=== PATIENT | female | born 1955 | race Caucasian/White ===

== ENCOUNTER 2019-08-13 15:26 | Emergency (ER) | payer MEDICARE, OTHER, SELFPAY ==
[2019-05-01 09:42] VITALS: BMI 33.5
[2019-07-10 13:02] VITALS: BMI 32.3
[2019-08-13 15:29] VITALS: BP 132/90; PULSE 101; RESP 15; TEMP 36.6; O2SAT 97; BMI 29.5
[2019-08-13] MEDS: 0.9% Normal Saline 1,000 ML 1000 ML IV (16:12)
[2019-08-13 16:31] LABS: Anion Gap 8 (5-15); BUN 21 mg/dL (7-18); BUN/Creat Ratio 21.2 RATIO (10-20); Calcium,Total 9.3 mg/dL (8.5-10.1); Chloride 108 mmol/L (98-107); Creatinine, Serum 0.99 mg/dL (0.55-1.02); EST Glomerular Filtration Rate 60 mL/min (>60); Est Glom Filt Rate - Afr Amer 72 mL/min (>60); Estimated Creatinine Clearance 48.92 ml/min; Glucose 100 mg/dL (74-106); Sodium Level 140 mmol/L (136-145)
[2019-08-13 17:00] LABS: Absolute Lymphocyte Count 0.22 X10^3/uL (0.83-4.51); Absolute Neutrophil Count 3.1 X10^3/uL (2.0-7.7); Basophil# 0.03 X10^3/uL; Basophil% 0.8 % (0-1); Eosinophil# 0.04 X10^3/uL; Hematocrit 37.3 % (37-47); Hemoglobin 12.5 g/dL (12.0-15.0); Lymphocyte # 0.22 X10^3/ul (4.0); Lymphocyte % 5.8 % (19-41); Mean Corp Hgb Conc 33.5 g/dL (32-36); Mean Corpuscular Hgb 30.3 pg (27.0-32.0); Mean Corpuscular Volume 90.5 fL (81-99); Monocyte# 0.35 X10^3/uL; Monocyte% 9.2 % (0-10); NRBC Flagged by Analyzer 0 % (0-5); Neutrophil # 3.14 X10^3/uL (2.7-7.7); Neutrophil % 82.4 % (47-70); POSITIVE COUNT YES; POSITIVE DIFFERENTIAL YES; Platelet Count 91 K/mm3 (150-450); RBC Distribution Width CV 11.9 % (11.6-14.6); RBC Distribution Width SD 38.1 fl (35.1-43.9); Red Blood Count 4.12 M/mm3 (4.2-5.4); White Blood Count 3.8 K/mm3 (4.4-11.0)
[2019-08-13 17:02] LABS: Differential Indicated SCAN CRITERIA MET
--- NOTE | 2019-08-13 17:28 | DCINST.ED_ITS ---
ED Disposition - Plan for ED Patient: Instructions: ED Dehydration Adult Referrals: Sharmaine Alonso, SHEET METAL TECHNICIAN-C [Primary Care Provider] -
--- NOTE | 2019-08-13 17:28 | ED.DEP ---
ED Disposition - Plan for ED Patient: Instructions: ED Dehydration Adult Referrals: Sharmaine Alonso, RIDER TICKET WORKER-C [Primary Care Provider] -
--- NOTE | 2019-08-13 17:31 | ED.DCSUM_ITS ---
- ER Visit Summary Date of Service: 08/13/19 Chief Complaint: Concern for dehydration History of Present Illness: The patient is a 63 F presenting with concern for dehydration. Patient states that she has not been able to eat or drink for the past several days. She states she has tried yogurt. She has been able to eat small amounts and drink small amounts. She states every time she tries to eat she has pain in her esophagus. She has a history of esophageal cancer currently on chemotherapy and radiation. She denies dizziness or syncope. Denies fever or other complaints. She has had vomiting but is not currently nauseated. Denies other complaints. Physical Examination: Vitals are stable. Heart rate 101. Patient is afebrile. Alert no acute distress. HEENT exam is unremarkable. Neck is supple. Lungs are clear and equal bilaterally. Heart is regular and tachycardic Abdomen is soft nontender nondistended. Extremities are unremarkable. Skin is warm and dry. No focal neurologic deficit. Remainder of exam is unremarkable. Emergency Department Course and Treatment: Patient was given IV fluids. CBC shows white count 3.8, platelet 91. BUN 21. On reevaluation patient is able to eat ice chips. Repeat heart rate 72. She would like to go home. Discussed with her oncologist Dr. Cabezas and patient will be seen on Tuesday. She is advised return to the ED for worsening complaints. Disposition: Discharge home Impression: Mild dehydration This note was generated with [employer] dictation software. It may contain incorrect words, spelling, and punctuation that were not noted in review of the chart prior to signing ED Disposition - Plan for ED Patient: Instructions: ED Dehydration Adult Referrals: Sharmaine Alonso NP-C [Primary Care Provider] -
[2019-08-13 17:33] VITALS: PULSE 72; RESP 16; O2SAT 100
[2019-08-13 17:56] VITALS: BP 131/82; PULSE 68
[2019-08-13 18:01] LABS: Differential Comment SCANNED; Platelet Estimate MOD DEC (ADEQ); Red Cell Morphology NORM C+C NORMAL (NORM C&C)
== END 2019-08-13 17:57 | disposition home or self-care (01) ==
LOC: ED 16:13
PROVIDERS: Emergency Provider Emergency Medicine; PCP Nurse Practitioner Family
DX: E86.0 Dehydration (principal); I10 Essential (primary) hypertension; C15.9 Malignant neoplasm of esophagus, unspecified; Z79.82 Long term (current) use of aspirin
CPT/HCPCS: 80048; 85025; 96360; 99283; J7030; A4216

== ENCOUNTER 2019-08-20 12:20 | Inpatient (IN) | payer MEDICARE, OTHER, SELFPAY ==
[2019-07-10 13:02] VITALS: BMI 32.3
[2019-08-20 11:00] VITALS: BMI 29.1
[2019-08-20 12:21] VITALS: BP 122/37; PULSE 96; RESP 18; TEMP 36.6; O2SAT 99; BMI 28.5
--- NOTE | 2019-08-20 12:41 | ED.DCSUM_ITS ---
History of Present Illness Chief Complaint: Nausea/Vomiting/Diarrhea Narrative: Patient is a 63-year-old female with a history of esophageal cancer who presents with decreased oral intake and uncontrolled pain. I was contacted by the patient's radiation oncologist, Dr. Morris to discuss the patient before her arrival here. Patient has a history of distal esophageal cancer. She has been undergoing treatment for the past few weeks. She has pain out of proportion to what he would normally expect. Over the weekend she also developed nausea vomiting and diarrhea. She had decreased oral intake. She has had weight loss and poor nutrition. Radiation oncology spoke to general surgery, Dr. Brito and patient is scheduled for an upper GI at 130. She was given IV fluids in the office today. However patient's pain is uncontrolled and she is unable to keep down her pain medications, she is prescribed oral morphine. Patient denies any fevers or cough. Her pain is similar in character to what she has been having but more severe. Past Medical History - Allergies and Home Meds Allergies/Adverse Reactions: Allergies codeine Allergy (Verified 08/20/19 12:24) Shortness of breath levofloxacin [From Levaquin] Allergy (Verified 08/20/19 12:24) Rash Primary Care Physician: Sharmaine Alonso NP-C [Primary Care Provider] - Past Medical History: - - Hypertension, hyperlipidemia, esophageal cancer Smoking Status: Never smoker Review of Systems All systems negative except as indicated General: Denies: Fever Eyes: Denies: Visual changes - bilaterally ENT: Denies: Bilateral ear pain Cardiovascular: Reports: Chest pain Respiratory: Denies: Dyspnea Gastrointestinal: Reports: Abdominal pain. Denies: Nausea, Vomiting, Diarrhea Skin: Denies: Rash Neurological: Denies: Headache Hematologic: Denies: Easy bruising Allergy: Denies: Uticaria Physical Exam Vital Signs/Narrative: Vital Signs Temp Pulse Resp BP Pulse Ox 08/20/19 12:21 97.8 F 96 18 122/37 H 99 Inital Vital Signs reviewed: Yes General: Well nourished Head: Normocephalic Eyes: EOMI ENT: Moist mucous membranes Neck: Supple Cardiovascular: Regular rate, Regular rhythm Respiratory: No distress, CTA bilaterally Abdomen: Soft, Nontender, Nondistended Extremities: Nontender Skin: Normal color Neurological: Alert Psychological: Normal affect Diagnostic/Tx/Re-eval Laboratory Results 08/20/19 08/20/19 13:10 13:10 WBC 2.9 L RBC 3.64 L Hgb 11.1 L Hct 34.1 L MCV 93.7 MCH 30.5 MCHC 32.6 RDW Std Deviation 41.4 RDW Coeff of [place] 12.3 Plt Count 62 L MPV 10.4 Immature Gran % (Auto) 0.700 Neut % (Auto) 81.5 H Lymph % (Auto) 3.8 L [place] % (Auto) 13.0 H Eos % (Auto) 0.3 Baso % (Auto) 0.7 Absolute Neuts (auto) 2.4 Absolute Lymphs (auto) 0.11 L Nucleated RBC % 0 Sodium 143 Potassium 4.3 Chloride 110 H Carbon Dioxide 21.0 Anion Gap 12 BUN 25 H Creatinine 0.94 Estim Creat Clear Calc 51.52 Est GFR (MDRD) Af Amer 77 Est GFR (MDRD) Non-Af 63 BUN/Creatinine Ratio 26.6 H Glucose 105 Calcium 8.9 Total Bilirubin 0.60 AST 13 L ALT 15 Alkaline Phosphatase 45 Total Protein 6.4 Albumin 3.2 Globulin 3.2 Albumin/Globulin Ratio 1.0 Lipase 91 - Medical Decision Making Laboratory evaluation as above essentially unremarkable. EKG shows normal sinus rhythm at a rate of 85. Patient will be discussed with the hospitalist and admitted. ED Disposition - Plan for ED Patient: Disposition: Acute Care Hospital [facility] Diagnosis: Esophageal cancer, Vomiting, Decreased oral intake Referrals: Sharmaine Alonso NP-C [Primary Care Provider] -
--- NOTE | 2019-08-20 12:41 | EKG12_ITS ---
Test Reason : NAUSEA/VOMITING Blood Pressure : / mmHG Vent. Rate : 085 BPM Atrial Rate : 085 BPM P-R Int : 146 ms QRS Dur : 082 ms QT Int : 374 ms P-R-T Axes : 000 -09 -08 degrees QTc Int : 445 ms Normal sinus rhythm Normal ECG Confirmed by KRZYSZTOF DE ANDA, WILLIS ([id number]), video effects editor GEOVANNA JOYCE ([id number]) on 08/23/2019 10:32:40 AM Referred By: MIKE Confirmed By:WILLIS BLANKENSHIP MD
--- NOTE | 2019-08-20 13:04 | NURSING ---
NO OLD EKGS
[2019-08-20] MEDS: HYDROmorphone 1 MG/ML Syringe IV ×2 (13:07→14:38)
[2019-08-20] MEDS: Ondansetron 4 MG/2 ML Vial IV ×2 (13:07→22:48)
[2019-08-20 13:24] LABS: Absolute Lymphocyte Count 0.11 X10^3/uL (0.83-4.51); Absolute Neutrophil Count 2.4 X10^3/uL (2.0-7.7); Basophil# 0.02 X10^3/uL; Basophil% 0.7 % (0-1); Eosinophil# 0.01 X10^3/uL; Eosinophils% 0.3 % (0-5); Hematocrit 34.1 % (37-47); Hemoglobin 11.1 g/dL (12.0-15.0); Lymphocyte # 0.11 X10^3/ul (4.0); Lymphocyte % 3.8 % (19-41); Mean Corp Hgb Conc 32.6 g/dL (32-36); Mean Corpuscular Hgb 30.5 pg (27.0-32.0); Mean Corpuscular Volume 93.7 fL (81-99); Mean Platelet Vol. 10.4 fl (6.2-12.0); Monocyte# 0.38 X10^3/uL; NRBC Flagged by Analyzer 0 % (0-5); Neutrophil # 2.39 X10^3/uL (2.7-7.7); Neutrophil % 81.5 % (47-70); POSITIVE COUNT YES; POSITIVE DIFFERENTIAL YES; POSITIVE MORPHOLOGY YES; Platelet Count 62 K/mm3 (150-450); RBC Distribution Width CV 12.3 % (11.6-14.6); RBC Distribution Width SD 41.4 fl (35.1-43.9); Red Blood Count 3.64 M/mm3 (4.2-5.4); White Blood Count 2.9 K/mm3 (4.4-11.0)
[2019-08-20 13:26] LABS: Differential Indicated SCAN CRITERIA MET
[2019-08-20 13:36] LABS: AST(SGOT) 13 U/L (15-37); Alanine Aminotransfer ALT/SGPT 15 U/L (13-56); Albumin, Serum 3.2 g/dL (3.2-5.0); Alkaline Phosphatase 45 U/L (45-117); Anion Gap 12 (5-15); BUN 25 mg/dL (7-18); BUN/Creat Ratio 26.6 RATIO (10-20); Calcium,Total 8.9 mg/dL (8.5-10.1); Chloride 110 mmol/L (98-107); Creatinine, Serum 0.94 mg/dL (0.55-1.02); EST Glomerular Filtration Rate 63 mL/min (>60); Est Glom Filt Rate - Afr Amer 77 mL/min (>60); Estimated Creatinine Clearance 51.52 ml/min; Globulin 3.2 g/dL (2.2-4.2); Glucose 105 mg/dL (74-106); Lipase 91 U/L (73-393); Potassium 4.3 mmol/L (3.5-5.1); Protein, Total 6.4 g/dL (6.4-8.2); Sodium Level 143 mmol/L (136-145)
[2019-08-20 14:20] VITALS: BP 122/76; PULSE 78; RESP 16; O2SAT 98
[2019-08-20 14:41] VITALS: BP 122/76; PULSE 78; RESP 16; TEMP 36.6; O2SAT 98
[2019-08-20 14:51] LABS: Platelet Estimate MOD DEC (ADEQ)
--- NOTE | 2019-08-20 15:28 | NURSING ---
315 KOTSOINIS ESOPHAGEAL CA, DEHYDRATION
[2019-08-20 16:02] VITALS: BMI 28.8
[2019-08-20 16:25] VITALS: BP 120/85; PULSE 82; RESP 18; TEMP 36.5; O2SAT 98
[2019-08-20] MEDS: Dextrose 5%/0.9% NaCl 1,000 ML 100 ML IV (16:38)
[2019-08-20] MEDS: Morphine 4 MG/ML Syringe IV ×3 (16:41→23:17)
--- NOTE | 2019-08-20 18:02 | HP.PCM_ITS ---
History of Present Illness Date of Admission: 08/20/19 Chief Complaint: N/V unable to take PO The patient is a 63 year old F with a PMH as below who presents from home with increasing abdominal pain whenever she tries to eat, as well as nausea and vomiting. She has a distal esophageal cancer and she is received 20 doses of radiation and has another 8 to go. However for the last several days she has noticed that she has had difficulty taking in food or liquids. The eating attempts were met with increasing pain as well as emesis. She says it she has a baseline amount of pain secondary to the radiation of the cancer and that it does get worse intermittently just with eating. She is afebrile, and denies any fevers, shortness of breath, chest pain, lightheadedness, dizziness. Past Medical History Medical History: Medical History (Last Updated 07/10/19 @ 13:05 by Coleen Adair, RN) Diabetes E11.9 Esophageal cancer C15.9 Gastric reflux K21.9 Gastric ulcer K25.9 HTN (hypertension) I10 Allergies codeine Allergy (Verified 08/20/19 12:24) Shortness of breath levofloxacin [From Levaquin] Allergy (Verified 08/20/19 12:24) Rash Home Medications: Ambulatory Orders Medication Instructions Recorded Aspirin [Aspirin, Baby] 81 mg PO DAILY@0800 04/22/14 Multivit with Calcium,Iron,Min 1 ea PO DAILY 04/22/14 [Multiple Vitamins For Women] pantoprazole 40 mg tablet,delayed 40 tablet PO DAILY 05/01/19 release simvastatin 40 mg tablet 40 mg PO DAILY 05/01/19 Clonazepam [Clonazepam Tab.Rapdis] 0.25 mg PO BID PRN 07/10/19 HydrOXYzine [Atarax] 25 mg PO DAILY 07/10/19 Magic Mouth Wash 10 ml PO Q6H PRN PRN #300 ml 08/06/19 Morphine Sulfate 10 mg PO TID PRN 08/15/19 Sertraline HCl [Zoloft] 100 mg PO DAILY 08/20/19 Surgical History: Surgical History (Last Updated 07/10/19 @ 13:06 by Coleen Adair, ANTONIO) H/O lumpectomy Z98.890 History of esophagogastroduodenoscopy (EGD) Z98.890 Smoking Status: Never smoker Alcohol: None Drugs: None - *Family History Maternal History Items: Cancer, Heart Disease Paternal History Items: Heart Disease Review of Systems Constitutional: Reports: Anorexia. Denies: Chills, Fever, Weight Change HEENT: Reports: Difficulty Swallowing. Denies: Head Aches, Sinus Congestion, Sinus Drainage Cardiovascular: Denies: Chest Pain, Palpitations Respiratory: Denies: Cough, Shortness of breath at rest, Sputum production Gastrointestinal: Reports: Abdominal Pain, Nausea, Vomiting Genitourinary: Denies: Dysuria Musculoskeletal: Denies: Joint Pain, Joint Tenderness Skin: Denies: Rash, Wounds Neurological: Denies: Numbness, Tingling, Focal weakness Psychiatric: Denies: Anxiety, Depression Hematologic/ Lymphatic: Denies: Easy Bruising, Easy Bleeding VTE Information - Inpt Only VTE Present on Admission: No Patient Problems: Active and Suspected Problems (Last Updated 07/10/19 @ 13:05 by Coleen Adair RN) Esophageal cancer (Acute) Vomiting (Acute) Decreased oral intake (Acute) - Physical Exam Vitals/I&O's: Vital Signs Temp Pulse Resp BP Pulse Ox 97.7 F L 82 18 120/85 H 98 08/20/19 16:25 08/20/19 16:25 08/20/19 16:25 08/20/19 16:25 08/20/19 16:25 Oxygen Delivery Method Room Air Weight: 167 lb 15.876 oz Body Mass Index (BMI) 28.8 Finger Stick Blood Glucose 114 Intake and Output for Last 24 Hours 08/18/19 08/19/19 08/20/19 23:59 23:59 23:59 Intake Total 81.67 / 81.67 Balance 81.67 / 81.67 General: Alert, Oriented x3, Cooperative, No apparent distress HEENT: Atraumatic, PERRLA, EOMI, Normocephalic Oral: Dry Mucosa Neck: Supple, No JVD Lungs: Clear to auscultation, Normal air movement, No rhonchi, No wheeze, No rales, Diminished Cardiovascular: Regular rate, Regular Rhythm, Normal S1, Normal S2, No murmurs Abdomen: Soft, Non Tender, Non-Distended, No Hepato-splenomegaly Extremities: No edema, Capillary Refill Less than 3 Seconds Skin: No rashes, No breakdown Neurological: Neuro grossly intact, Sensory exam intact to light touch and pain Psych/Mental Status: Normal Affect, Appropriate Laboratory Results 08/20/19 13:10: WBC 2.9 L, RBC 3.64 L, Hgb 11.1 L, Hct 34.1 L, MCV 93.7, MCH 30.5, MCHC 32.6, RDW Std Deviation 41.4, RDW Coeff of [place] 12.3, Plt Count 62 L, MPV 10.4, Immature Gran % (Auto) 0.700, Neut % (Auto) 81.5 H, Lymph % (Auto) 3.8 L, [place] % (Auto) 13.0 H, Eos % (Auto) 0.3, Baso % (Auto) 0.7, Absolute Neuts (auto) 2.4, Absolute Lymphs (auto) 0.11 L, Nucleated RBC % 0, Differential Comment COMMENT, Diff Path Review July, Platelet Estimate MOD 08/20/19 13:10: Sodium 143, Potassium 4.3, Chloride 110 H, Carbon Dioxide 21.0, Anion Gap 12, BUN 25 H, Creatinine 0.94, Estim Creat Clear Calc 51.52, Est GFR (MDRD) Af Amer 77, Est GFR (MDRD) Non-Af 63, BUN/Creatinine Ratio 26.6 H, Glucose 105, Calcium 8.9, Total Bilirubin 0.60, AST 13 L, ALT 15, Alkaline Phosphatase 45, Total Protein 6.4, Albumin 3.2, Globulin 3.2, Albumin/Globulin Ratio 1.0, Lipase 91 Current Medications Aspirin (Aspirin, Baby) 81 mg PO DAILY@0800 [facility] Atorvastatin Calcium (Lipitor) 20 mg PO QHS [facility] Clonazepam (Klonopin) 0.25 mg PO BID PRN PRN Reason: ANXIETY Enoxaparin Sodium (Lovenox) 40 mg SC DAILY [facility] Hydroxyzine Pamoate (Vistaril Pamoate Capsule) 25 mg PO DAILY [facility] Dextrose/Sodium Chloride (Dextrose 5%/0.9% Nacl) 1,000 mls @ 100 mls/hr IV .Q10H [facility] Last Infusion: 08/20/19 17:27 Dose: 0 mls/hr Documented by: Pantoprazole Sodium 40 mg/ (Sodium Chloride) 110 mls @ 330 mls/hr IV Q24 [facility] Last Admin: 08/20/19 17:26 Dose: 330 mls/hr Documented by: Lidocaine/Diphenhydr/Alum/Mg/Simeth () 10 ml PO Q6H PRN PRN Reason: Pain Score 1-10/10 Melatonin (Melatonin) 3 mg PO QHS PRN PRN PRN Reason: INSOMNIA Morphine Sulfate () 4 mg IV Q3H PRN PRN PRN Reason: Pain Score 6-10/10 Last Admin: 08/20/19 16:41 Dose: 4 mg Documented by: Morphine Sulfate (Roxanol (Ir Oral Solution)) 10 mg PO TID PRN PRN Reason: Pain Score 1-10/10 Ondansetron HCl (Zofran) 4 mg IV Q8H PRN PRN PRN Reason: NAUSEA/VOMITING Sertraline HCl (Zoloft) 100 mg PO DAILY [facility] Assessment/Plan All Active Problems (Last Updated 07/10/19 @ 13:05 by Coleen Adair RN) Esophageal cancer (Acute) Vomiting (Acute) Decreased oral intake (Acute) 1. Distal esophageal cancer with poor histology with dysphagia secondary to either cancer or radiation trauma/GERD -We will obtain an upper GI with a barium swallow to evaluate the distal esophagus -If there is some room could potentially proceed with Dobbhoff placement for feeds -Consult to general surgery for assistance -Continue with IV fluids at 100 with D5 normal saline -She takes morphine 10 mg p.o. 3 times daily as needed, she is not interested in trying anything p.o. at this time therefore have transitioned her to 4 mg of morphine IV every 3 hours as needed -Also continue with PPI -Given her cancer diagnosis, will place her on Lovenox for DVT prophylaxis 2. HTN/HLD -Blood pressure stable -Continue with simvastatin if able as well as aspirin if able 3. Depression/anxiety -Stable -Continue Zoloft if able DVT: Lovenox OBSV E&M: [id number] Initial observation care L2
[2019-08-20] MEDS: 0.9% Saline Lock 10 ML Syringe IV ×3 (22:48→23:18)
[2019-08-20 23:00] VITALS: BP 119/71; PULSE 91; RESP 16; TEMP 36.6; O2SAT 97
[2019-08-21] MEDS: LORazepam 2 MG/ML Syringe 0.5 MG IV ×2 (00:54→14:35)
[2019-08-21] MEDS: 0.9% Saline Lock 10 ML Syringe IV ×5 (00:54→17:53)
[2019-08-21] MEDS: Dextrose 5%/0.9% NaCl 1,000 ML 100 ML IV ×2 (03:16→17:40)
[2019-08-21] MEDS: Morphine 4 MG/ML Syringe IV ×2 (04:43→18:18)
[2019-08-21] MEDS: Ondansetron 4 MG/2 ML Vial 8 MG IV ×2 (04:46→17:53)
[2019-08-21 05:03] VITALS: BP 116/74; PULSE 90; RESP 18; TEMP 36.8; O2SAT 95
[2019-08-21 05:43] LABS: Absolute Lymphocyte Count 0.08 X10^3/uL (0.83-4.51); Basophil# 0.01 X10^3/uL; Basophil% 0.7 % (0-1); Eosinophil# 0.01 X10^3/uL; Eosinophils% 0.7 % (0-5); Hematocrit 31.5 % (37-47); Hemoglobin 10.1 g/dL (12.0-15.0); Lymphocyte # 0.08 X10^3/ul (4.0); Lymphocyte % 5.7 % (19-41); Mean Corp Hgb Conc 32.1 g/dL (32-36); Mean Corpuscular Hgb 30.3 pg (27.0-32.0); Mean Corpuscular Volume 94.6 fL (81-99); Mean Platelet Vol. 9.4 fl (6.2-12.0); Monocyte# 0.32 X10^3/uL; Monocyte% 22.7 % (0-10); NRBC Flagged by Analyzer 0 % (0-5); Neutrophil # 0.99 X10^3/uL (2.7-7.7); Neutrophil % 70.2 % (47-70); POSITIVE COUNT YES; POSITIVE DIFFERENTIAL YES; POSITIVE MORPHOLOGY YES; Platelet Count 54 K/mm3 (150-450); RBC Distribution Width CV 12.3 % (11.6-14.6); RBC Distribution Width SD 41.8 fl (35.1-43.9); Red Blood Count 3.33 M/mm3 (4.2-5.4)
--- NOTE | 2019-08-21 05:55 | RAD_ITS ---
STUDY: AIR CONTRAST UPPER GI SERIES REASON FOR EXAM: Female, 63 years old. Distal esophageal CA, diagnosed June 26 -- unable to tolerate PO -- has had almost 5 weeks of chemo -- weight loss of 20 lbs, loss of appetite and too painful to eat or drink FLUOROSCOPY TIME (if supplied): (1:04) minutes/seconds TECHNIQUE: SINGLE CONTRAST AND AIR CONTRAST FLUOROSCOPIC IMAGES. COMPARISON: None. FINDINGS: The cervical esophagus demonstrates normal motility without aspiration. There is no stricture or extrinsic mass effect. No intraluminal polypoid mass is identified. There is evidence of a circumferential narrowing of the distal esophagus at the level of the gastroesophageal junction. There is irregular appearance suggestive of possible ulceration at that site. A small amount of contrast is seen entering the stomach. No hiatal hernia or gastroesophageal reflux was identified. RAD/Upper GI w/BA Swallow IMPRESSION: Irregular circumferential narrowing of the distal esophagus at the gastroesophageal junction. This is intimate with the patient''s known diagnosis of esophageal carcinoma. Small amount of barium is seen entering the stomach. Electronically Signed: Stuart Contreras, at 12:07 EDT , Service support ,
[2019-08-21 05:56] LABS: Differential Indicated SCAN CRITERIA MET; White Blood Count 1.4 K/mm3 (4.4-11.0)
[2019-08-21 06:04] LABS: Anion Gap 7 (5-15); BUN 22 mg/dL (7-18); BUN/Creat Ratio 26.8 RATIO (10-20); Calcium,Total 8.4 mg/dL (8.5-10.1); Chloride 115 mmol/L (98-107); Creatinine, Serum 0.82 mg/dL (0.55-1.02); EST Glomerular Filtration Rate 74 mL/min (>60); Est Glom Filt Rate - Afr Amer 90 mL/min (>60); Estimated Creatinine Clearance 59.06 ml/min; Glucose 143 mg/dL (74-106); Potassium 3.5 mmol/L (3.5-5.1); Sodium Level 145 mmol/L (136-145)
[2019-08-21 06:40] LABS: Differential Comment SCANNED
[2019-08-21 06:41] LABS: Platelet Estimate MOD DEC (ADEQ)
--- NOTE | 2019-08-21 07:22 | PCM.PN.HOSP ---
Patient Problems: Active and Suspected Problems (Last Updated 07/10/19 @ 13:05 by Coleen Adair RN) Esophageal cancer (Acute) Vomiting (Acute) Decreased oral intake (Acute) Vitals/I&O's: Vital Signs Temp Pulse Resp BP Pulse Ox 98.2 F 90 18 116/74 95 08/21/19 05:03 08/21/19 05:03 08/21/19 05:03 08/21/19 05:03 08/21/19 05:03 Oxygen Delivery Method Room Air Weight: 167 lb 15.876 oz Body Mass Index (BMI) 28.8 Finger Stick Blood Glucose 114 Intake and Output for Last 24 Hours 08/19/19 08/20/19 08/21/19 23:59 23:59 23:59 Intake Total 241.67 / 341.67 1018.33 / 1018.33 Output Total 400 / 400 Balance 241.67 / 141.67 618.33 / 618.33 Laboratory Results 08/20/19 13:10: WBC 2.9 L, RBC 3.64 L, Hgb 11.1 L, Hct 34.1 L, MCV 93.7, MCH 30.5, MCHC 32.6, RDW Std Deviation 41.4, RDW Coeff of [place] 12.3, Plt Count 62 L, MPV 10.4, Immature Gran % (Auto) 0.700, Neut % (Auto) 81.5 H, Lymph % (Auto) 3.8 L, [place] % (Auto) 13.0 H, Eos % (Auto) 0.3, Baso % (Auto) 0.7, Absolute Neuts (auto) 2.4, Absolute Lymphs (auto) 0.11 L, Nucleated RBC % 0, Differential Comment COMMENT, Diff Path Review July foll, Platelet Estimate MOD 08/20/19 13:10: Sodium 143, Potassium 4.3, Chloride 110 H, Carbon Dioxide 21.0, Anion Gap 12, BUN 25 H, Creatinine 0.94, Estim Creat Clear Calc 51.52, Est GFR (MDRD) Af Amer 77, Est GFR (MDRD) Non-Af 63, BUN/Creatinine Ratio 26.6 H, Glucose 105, Calcium 8.9, Total Bilirubin 0.60, AST 13 L, ALT 15, Alkaline Phosphatase 45, Total Protein 6.4, Albumin 3.2, Globulin 3.2, Albumin/Globulin Ratio 1.0, Lipase 91 08/21/19 05:25: Sodium 145, Potassium 3.5, Chloride 115 H, Carbon Dioxide 23.0, Anion Gap 7, BUN 22 H, Creatinine 0.82, Estim Creat Clear Calc 59.06, Est GFR (MDRD) Af Amer 90, Est GFR (MDRD) Non-Af 74, BUN/Creatinine Ratio 26.8 H, Glucose 143 H, Calcium 8.4 L 08/21/19 05:25: WBC 1.4 L*, RBC 3.33 L, Hgb 10.1 L, Hct 31.5 L, MCV 94.6, MCH 30.3, MCHC 32.1, RDW Std Deviation 41.8, RDW Coeff of [place] 12.3, Plt Count 54 L, MPV 9.4, Immature Gran % (Auto) 0.000, Neut % (Auto) 70.2 H, Lymph % (Auto) 5.7 L, [place] % (Auto) 22.7 H, Eos % (Auto) 0.7, Baso % (Auto) 0.7, Absolute Neuts (auto) 1.0 L, Absolute Lymphs (auto) 0.08 L, Nucleated RBC % 0, Differential Comment SCANNED, Diff Path Review May foll, Platelet Estimate MOD DEC Current Medications Aspirin (Aspirin, Baby) 81 mg PO DAILY@0800 [facility] Atorvastatin Calcium (Lipitor) 20 mg PO QHS [facility] Last Admin: 08/20/19 22:48 Dose: Not Given Documented by: Enoxaparin Sodium (Lovenox) 40 mg SC DAILY [facility] Hydroxyzine Pamoate (Vistaril Pamoate Capsule) 25 mg PO DAILY [facility] Dextrose/Sodium Chloride (Dextrose 5%/0.9% Nacl) 1,000 mls @ 75 mls/hr IV .[id number] [facility] Last Admin: 08/21/19 03:16 Dose: 100 mls/hr Documented by: Pantoprazole Sodium 40 mg/ (Sodium Chloride) 110 mls @ 330 mls/hr IV Q24 [facility] Last Infusion: 08/20/19 17:46 Dose: Infused Documented by: Sodium Chloride () 250 mls @ 15 mls/hr IV .[id number] PRN PRN Reason: Saline Flush Sodium Chloride () 250 mls @ 15 mls/hr IV .[id number] PRN PRN Reason: Additional IVPB Infusion Lidocaine/Diphenhydr/Alum/Mg/Simeth () 10 ml PO Q6H PRN PRN Reason: Pain Score 1-10/10 Lorazepam (Ativan) 0.5 mg IV Q6H PRN PRN PRN Reason: ANXIETY Last Admin: 08/21/19 00:54 Dose: 0.5 mg Documented by: Melatonin (Melatonin) 3 mg PO QHS PRN PRN PRN Reason: INSOMNIA Morphine Sulfate () 4 mg IV Q3H PRN PRN PRN Reason: Pain Score 6-10/10 Last Admin: 08/21/19 04:43 Dose: 4 mg Documented by: Morphine Sulfate (Roxanol (Ir Oral Solution)) 10 mg PO TID PRN PRN Reason: Pain Score 1-10/10 Ondansetron HCl (Zofran) 8 mg IV Q6H PRN PRN PRN Reason: NAUSEA/VOMITING Last Admin: 08/21/19 04:46 Dose: 8 mg Documented by: Sertraline HCl (Zoloft) 100 mg PO DAILY [facility] Sodium Chloride () 10 - 40 ml IV UD PRN PRN Reason: SALINE FLUSH Last Admin: 08/21/19 04:43 Dose: 10 ml Documented by: STROKE Vital Signs/Narrative: Vital Signs Temp Pulse Resp BP Pulse Ox 08/21/19 05:03 98.2 F 90 18 116/74 95 Medical Necessity - Tobacco Use Smoking Status: Never smoker Assessment/Plan All Active Problems (Last Updated 07/10/19 @ 13:05 by Coleen Adair RN) Esophageal cancer (Acute) Vomiting (Acute) Decreased oral intake (Acute) 1. Distal esophageal cancer with poor histology with dysphagia secondary to either cancer or radiation trauma/GERD - upper GI with a barium swallow/esophagram to evaluate the distal esophagus -Consult to general surgery for assistance -Continue with IV fluids at 100 with D5 normal saline -She takes morphine 10 mg p.o. 3 times daily as needed, she is not interested in trying anything p.o. at this time therefore have transitioned her to 4 mg of morphine IV every 3 hours as needed -Also continue with PPI -Given her cancer diagnosis, will place her on Lovenox for DVT prophylaxis 2. HTN/HLD -Blood pressure stable -Continue with simvastatin if able as well as aspirin if able 3. Depression/anxiety -Stable -Continue Zoloft if able DVT: Lovenox
--- NOTE | 2019-08-21 07:26 | CON.PCM_ITS ---
Problem List (1) Esophageal cancer Status: Acute Qualifiers: Malignant neoplasm of esophagus location: lower third Qualified Code(s): C15.5 - Malignant neoplasm of lower third of esophagus Reason for Consult Date of Consultation: 08/21/19 Reason for Consultation: Dysphasia and abdominal pain History of Present Illness: The patient is a 63 year old F with a history of esophageal cancer undergoing chemotherapy and radiation. The patient is seeing a surgeon at in [place] who will do her esophagectomy after chemo and radiation. The patient notes that she has been having epigastric pain since she was diagnosed but it has increased in intensity. She reports that lately she has been unable to eat. She reports that she immediately regurgitates food and she is having difficulty controlling her saliva secretions as well. Past Medical History Medical History: Medical History (Last Updated 07/10/19 @ 13:05 by Coleen Adair RN) Diabetes E11.9 Esophageal cancer C15.9 Gastric reflux K21.9 Gastric ulcer K25.9 HTN (hypertension) I10 Allergies codeine Allergy (Verified 08/20/19 12:24) Shortness of breath levofloxacin [From Levaquin] Allergy (Verified 08/20/19 12:24) Rash Home Medications: Ambulatory Orders Medication Instructions Recorded Aspirin [Aspirin, Baby] 81 mg PO DAILY@0800 04/22/14 Multivit with Calcium,Iron,Min 1 ea PO DAILY 04/22/14 [Multiple Vitamins For Women] pantoprazole 40 mg tablet,delayed 40 tablet PO DAILY 05/01/19 release simvastatin 40 mg tablet 40 mg PO DAILY 05/01/19 Clonazepam [Clonazepam Tab.Rapdis] 0.25 mg PO BID PRN 07/10/19 HydrOXYzine [Atarax] 25 mg PO DAILY 07/10/19 Magic Mouth Wash 10 ml PO Q6H PRN PRN #300 ml 08/06/19 Morphine Sulfate 10 mg PO TID PRN 08/15/19 Sertraline HCl [Zoloft] 100 mg PO DAILY 08/20/19 Surgical History: Surgical History (Last Updated 07/10/19 @ 13:06 by Coleen Adair RN) H/O lumpectomy Z98.890 History of esophagogastroduodenoscopy (EGD) Z98.890 Smoking Status: Never smoker Alcohol: None Drugs: None - *Family History Maternal History Items: Cancer, Heart Disease Paternal History Items: Heart Disease Review of Systems Constitutional: Reports: Anorexia. Denies: Fever HEENT: Reports: Dysphasia. Denies: Difficulty Hearing Cardiovascular: Denies: Chest Pain Respiratory: Denies: Cough, Shortness of Breath Gastrointestinal: Reports: Abdominal Pain, Nausea, Vomiting. Denies: Constipation, Diarrhea, Hematemesis, Hematochezia Skin: Denies: Jaundice Neurological: Denies: Balance problems Hematologic/ Lymphatic: Denies: Anemia Patient Problems: Active and Suspected Problems (Last Updated 07/10/19 @ 13:05 by Coleen Adair RN) Esophageal cancer (Acute) Vomiting (Acute) Decreased oral intake (Acute) - Physical Exam Vitals/I&O's: Vital Signs Temp Pulse Resp BP Pulse Ox 98.2 F 90 18 116/74 95 08/21/19 05:03 08/21/19 05:03 08/21/19 05:03 08/21/19 05:03 08/21/19 05:03 Oxygen Delivery Method Room Air Weight: 167 lb 15.876 oz Body Mass Index (BMI) 28.8 Finger Stick Blood Glucose 114 Intake and Output for Last 24 Hours 08/19/19 08/20/19 08/21/19 23:59 23:59 23:59 Intake Total 241.67 / 341.67 1018.33 / 1018.33 Output Total 400 / 400 Balance 241.67 / 141.67 618.33 / 618.33 General: Alert, Oriented x3, No apparent distress HEENT: Atraumatic Lungs: Normal air movement Cardiovascular: Regular rate, Regular Rhythm Abdomen: Soft, Non-Distended, Tender - Tender in the epigastric region Musculoskeletal: No Muscle Wasting Neurological: Cranial nerves II-XII grossly intact Laboratory Results 08/20/19 13:10: WBC 2.9 L, RBC 3.64 L, Hgb 11.1 L, Hct 34.1 L, MCV 93.7, MCH 30.5, MCHC 32.6, RDW Std Deviation 41.4, RDW Coeff of Ely 12.3, Plt Count 62 L, MPV 10.4, Immature Gran % (Auto) 0.700, Neut % (Auto) 81.5 H, Lymph % (Auto) 3.8 L, [place] % (Auto) 13.0 H, Eos % (Auto) 0.3, Baso % (Auto) 0.7, Absolute Neuts (auto) 2.4, Absolute Lymphs (auto) 0.11 L, Nucleated RBC % 0, Differential Comment COMMENT, Diff Path Review July juan a Platelet Estimate MOD 08/20/19 13:10: Sodium 143, Potassium 4.3, Chloride 110 H, Carbon Dioxide 21.0, Anion Gap 12, BUN 25 H, Creatinine 0.94, Estim Creat Clear Calc 51.52, Est GFR (MDRD) Af Amer 77, Est GFR (MDRD) Non-Af 63, BUN/Creatinine Ratio 26.6 H, Glucose 105, Calcium 8.9, Total Bilirubin 0.60, AST 13 L, ALT 15, Alkaline Phosphatase 45, Total Protein 6.4, Albumin 3.2, Globulin 3.2, Albumin/Globulin Ratio 1.0, Lipase 91 08/21/19 05:25: Sodium 145, Potassium 3.5, Chloride 115 H, Carbon Dioxide 23.0, Anion Gap 7, BUN 22 H, Creatinine 0.82, Estim Creat Clear Calc 59.06, Est GFR (MDRD) Af Amer 90, Est GFR (MDRD) Non-Af 74, BUN/Creatinine Ratio 26.8 H, Glucose 143 H, Calcium 8.4 L 08/21/19 05:25: WBC 1.4 L*, RBC 3.33 L, Hgb 10.1 L, Hct 31.5 L, MCV 94.6, MCH 30.3, MCHC 32.1, RDW Std Deviation 41.8, RDW Coeff of Ely 12.3, Plt Count 54 L, MPV 9.4, Immature Gran % (Auto) 0.000, Neut % (Auto) 70.2 H, Lymph % (Auto) 5.7 L, [place] % (Auto) 22.7 H, Eos % (Auto) 0.7, Baso % (Auto) 0.7, Absolute Neuts (auto) 1.0 L, Absolute Lymphs (auto) 0.08 L, Nucleated RBC % 0, Differential Comment SCANNED, Diff Path Review July juan a, Platelet Estimate MOD FEB Current Medications Aspirin (Aspirin, Baby) 81 mg PO DAILY@0800 [facility] Atorvastatin Calcium (Lipitor) 20 mg PO QHS [facility] Last Admin: 08/20/19 22:48 Dose: Not Given Documented by: Enoxaparin Sodium (Lovenox) 40 mg SC DAILY [facility] Hydroxyzine Pamoate (Vistaril Pamoate Capsule) 25 mg PO DAILY [facility] Dextrose/Sodium Chloride (Dextrose 5%/0.9% Nacl) 1,000 mls @ 75 mls/hr IV .[id number] [facility] Last Admin: 08/21/19 03:16 Dose: 100 mls/hr Documented by: Pantoprazole Sodium 40 mg/ (Sodium Chloride) 110 mls @ 330 mls/hr IV Q24 [facility] Last Infusion: 08/20/19 17:46 Dose: Infused Documented by: Sodium Chloride () 250 mls @ 15 mls/hr IV .[id number] PRN PRN Reason: Saline Flush Sodium Chloride () 250 mls @ 15 mls/hr IV .[id number] PRN PRN Reason: Additional IVPB Infusion Lidocaine/Diphenhydr/Alum/Mg/Simeth () 10 ml PO Q6H PRN PRN Reason: Pain Score 1-10/10 Lorazepam (Ativan) 0.5 mg IV Q6H PRN PRN PRN Reason: ANXIETY Last Admin: 08/21/19 00:54 Dose: 0.5 mg Documented by: Melatonin (Melatonin) 3 mg PO QHS PRN PRN PRN Reason: INSOMNIA Morphine Sulfate () 4 mg IV Q3H PRN PRN PRN Reason: Pain Score 6-10/10 Last Admin: 08/21/19 04:43 Dose: 4 mg Documented by: Morphine Sulfate (Roxanol (Ir Oral Solution)) 10 mg PO TID PRN PRN Reason: Pain Score 1-10/10 Ondansetron HCl (Zofran) 8 mg IV Q6H PRN PRN PRN Reason: NAUSEA/VOMITING Last Admin: 08/21/19 04:46 Dose: 8 mg Documented by: Sertraline HCl (Zoloft) 100 mg PO DAILY [facility] Sodium Chloride () 10 - 40 ml IV UD PRN PRN Reason: SALINE FLUSH Last Admin: 08/21/19 04:43 Dose: 10 ml Documented by: Assessment/Plan All Active Problems (Last Updated 07/10/19 @ 13:05 by Coleen Adair RN) Esophageal cancer (Acute) Vomiting (Acute) Decreased oral intake (Acute) 63-year-old female with esophageal cancer and dysphasia 1. The patient is having difficulty with swallowing and regurgitation of food. The patient may be having candidiasis but I think it is more likely that her tumor has grown or she is having reactive changes from the radiation. The patient has having an upper GI with barium swallow today. If there is no passage of contrast I would recommend that she go to for evaluation for immediate surgery. If the upper GI shows passage of contrast she may benefit from placement of a CorPak for tube feeding until surgery. I would be able to do this with EGD assistance tomorrow or if IR would be able to do it over guidewire that would work as well. Brett Brito MD Pager: [facility] [address] [place] [address] [address] [place] [address] Office:
[2019-08-21 09:25] VITALS: BP 126/72; PULSE 80; RESP 16; TEMP 36.8; O2SAT 99
[2019-08-21 11:27] LABS: Pathologist Review Reviewed
[2019-08-21 11:32] LABS: Pathologist Review Reviewed
--- NOTE | 2019-08-21 11:56 | CASEMGMT ---
Social Work Note SHAREE reviewed chart. Pt has history of esophageal cancer, currently receiving radiation treatment. SW completed Palliative screening tool. SW in to speak with pt to provide support and to discuss Palliative Care. SW introduced self and role at [facility]. Pt is alert and orientated x3. Pt states that she was diagnosed with cancer in June 2019. Pt states that she has good support, feels supportive. Pt states that she has good support through family and friends. SW offered to provide pt with support groups resources and additional resources and pt denied. SHAREE educated pt on Palliative care and provided pt with Palliative Brochure. Pt receptive to taking brochure, denied wanting a Palliative Care referral made at this time. Pt denied additional needs or concerns at this time. Selin Edward [employer], RESIDENT CARE MANAGER RN
[2019-08-21] MEDS: Enoxaparin 40 MG/0.4 ML Syringe SC (12:36)
--- NOTE | 2019-08-21 13:19 | PN_ITS ---
<See Shepherd - Last Filed: 08/21/19 13:19> Patient Problems: Active and Suspected Problems (Last Updated 07/10/19 @ 13:05 by Coleen Adair RN) Esophageal cancer (Acute) Vomiting (Acute) Decreased oral intake (Acute) Reason for Visit: dysphagia Subjective: Pt has been undergoing chemo and radiation for esophageal cancer. She has not been able to eat correctly >1 month. She tolerated the barium swallow today and kept the barium down. She has some nausea but no vomiting. No fever/chills. Some diarrhea yesterday/today. No hx cdiff - c diff test neg. Vitals/I&O's: Vital Signs Temp Pulse Resp BP Pulse Ox 98.2 F 80 16 126/72 H 99 08/21/19 09:25 08/21/19 09:25 08/21/19 09:25 08/21/19 09:25 08/21/19 09:25 Oxygen Delivery Method Room Air Weight: 167 lb 15.876 oz Body Mass Index (BMI) 28.8 Finger Stick Blood Glucose 114 Intake and Output for Last 24 Hours 08/19/19 08/20/19 08/21/19 23:59 23:59 23:59 Intake Total 241.67 / 341.67 1128.33 / 1128.33 Output Total 400 / 400 Balance 241.67 / 141.67 728.33 / 728.33 General: Alert, Oriented x3, Cooperative HEENT: Atraumatic, PERRLA, EOMI, Normocephalic Neck: Supple, No JVD, Negative Carotid Bruits Lungs: Clear to auscultation, Normal air movement Cardiovascular: Regular rate, No murmurs Abdomen: Bowel Sounds Present, Soft, Non Tender Extremities: No edema, Capillary Refill Less than 3 Seconds Skin: No rashes, No breakdown Musculoskeletal: No Tenderness to Palpation of Joints or Extremities Neurological: Cranial nerves II-XII grossly intact Psych/Mental Status: Normal Affect, Appropriate, Alert and oriented to time, place, person, mood and affect Microbiology Past 72 Hours 08/21/19 07:20 Stool C. difficile DNA Amplification - Final Laboratory Results 08/20/19 13:10: WBC 2.9 L, RBC 3.64 L, Hgb 11.1 L, Hct 34.1 L, MCV 93.7, MCH 30.5, MCHC 32.6, RDW Std Deviation 41.4, RDW Coeff of Ely 12.3, Plt Count 62 L, MPV 10.4, Immature Gran % (Auto) 0.700, Neut % (Auto) 81.5 H, Lymph % (Auto) 3.8 L, [place] % (Auto) 13.0 H, Eos % (Auto) 0.3, Baso % (Auto) 0.7, Absolute Neuts (auto) 2.4, Absolute Lymphs (auto) 0.11 L, Nucleated RBC % 0, Differential Comment COMMENT, Diff Path Review Reviewed, Platelet Estimate MOD 08/20/19 13:10: Sodium 143, Potassium 4.3, Chloride 110 H, Carbon Dioxide 21.0, Anion Gap 12, BUN 25 H, Creatinine 0.94, Estim Creat Clear Calc 51.52, Est GFR (MDRD) Af Amer 77, Est GFR (MDRD) Non-Af 63, BUN/Creatinine Ratio 26.6 H, Glucose 105, Calcium 8.9, Total Bilirubin 0.60, AST 13 L, ALT 15, Alkaline Phosphatase 45, Total Protein 6.4, Albumin 3.2, Globulin 3.2, Albumin/Globulin Ratio 1.0, Lipase 91 08/21/19 05:25: Sodium 145, Potassium 3.5, Chloride 115 H, Carbon Dioxide 23.0, Anion Gap 7, BUN 22 H, Creatinine 0.82, Estim Creat Clear Calc 59.06, Est GFR (MDRD) Af Amer 90, Est GFR (MDRD) Non-Af 74, BUN/Creatinine Ratio 26.8 H, Glucose 143 H, Calcium 8.4 L 08/21/19 05:25: WBC 1.4 L*, RBC 3.33 L, Hgb 10.1 L, Hct 31.5 L, MCV 94.6, MCH 3 0.3, MCHC 32.1, RDW Std Deviation 41.8, RDW Coeff of Ely 12.3, Plt Count 54 L, MPV 9.4, Immature Gran % (Auto) 0.000, Neut % (Auto) 70.2 H, Lymph % (Auto) 5.7 L, [place] % (Auto) 22.7 H, Eos % (Auto) 0.7, Baso % (Auto) 0.7, Absolute Neuts (auto) 1.0 L, Absolute Lymphs (auto) 0.08 L, Nucleated RBC % 0, Differential Comment SCANNED, Diff Path Review Reviewed, Platelet Estimate MOD DEC Current Medications Aspirin (Aspirin, Baby) 81 mg PO DAILY@0800 [facility] Last Admin: 08/21/19 09:22 Dose: Not Given Documented by: Atorvastatin Calcium (Lipitor) 20 mg PO QHS [facility] Last Admin: 08/20/19 22:48 Dose: Not Given Documented by: Enoxaparin Sodium (Lovenox) 40 mg SC DAILY [facility] Last Admin: 08/21/19 12:36 Dose: 40 mg Documented by: Hydroxyzine Pamoate (Vistaril Pamoate Capsule) 25 mg PO DAILY [facility] Last Admin: 08/21/19 09:23 Dose: Not Given Documented by: Dextrose/Sodium Chloride (Dextrose 5%/0.9% Nacl) 1,000 mls @ 75 mls/hr IV .[id number] [facility] Last Admin: 08/21/19 03:16 Dose: 100 mls/hr Documented by: Pantoprazole Sodium 40 mg/ (Sodium Chloride) 110 mls @ 330 mls/hr IV Q24 [facility] Last Infusion: 08/21/19 10:06 Dose: Infused Documented by: Sodium Chloride () 250 mls @ 15 mls/hr IV .[id number] PRN PRN Reason: Saline Flush Sodium Chloride () 250 mls @ 15 mls/hr IV .[id number] PRN PRN Reason: Additional IVPB Infusion Lidocaine/Diphenhydr/Alum/Mg/Simeth () 10 ml PO Q6H PRN PRN Reason: Pain Score 1-10/10 Lorazepam (Ativan) 0.5 mg IV Q6H PRN PRN PRN Reason: ANXIETY Last Admin: 08/21/19 00:54 Dose: 0.5 mg Documented by: Melatonin (Melatonin) 3 mg PO QHS PRN PRN PRN Reason: INSOMNIA Morphine Sulfate () 4 mg IV Q3H PRN PRN PRN Reason: Pain Score 6-10/10 Last Admin: 08/21/19 04:43 Dose: 4 mg Documented by: Morphine Sulfate (Roxanol (Ir Oral Solution)) 10 mg PO TID PRN PRN Reason: Pain Score 1-10/10 Nystatin (Nystatin) 500,000 unit PO 4X/DAY [facility] Ondansetron HCl (Zofran) 8 mg IV Q6H PRN PRN PRN Reason: NAUSEA/VOMITING Last Admin: 08/21/19 04:46 Dose: 8 mg Documented by: Sertraline HCl (Zoloft) 100 mg PO DAILY [facility] Last Admin: 08/21/19 09:23 Dose: Not Given Documented by: Sodium Chloride () 10 - 40 ml IV UD PRN PRN Reason: SALINE FLUSH Last Admin: 08/21/19 09:46 Dose: 10 ml Documented by: STROKE Vital Signs/Narrative: Vital Signs Temp Pulse Resp BP Pulse Ox 08/21/19 09:25 98.2 F 80 16 126/72 H 99 Medical Necessity - Tobacco Use Smoking Status: Never smoker Assessment/Plan All Active Problems (Last Updated 07/10/19 @ 13:05 by Coleen Adair RN) Esophageal cancer (Acute) Vomiting (Acute) Decreased oral intake (Acute) 1. Difficulty swallowing 2/2 distal esophageal cancer - undergoing chemo/rad. Gen surg following. Barium swallow : small amount of barium entering the stomach. Dobhoff vs transfer for more invasive surgery. Continue IV protonix 2. GERD - ppi IV 3. Depression/anx - zoloft, melatonin, ativan, vistaril 4. Hx DMt2 - no medication given inability to eat for some time DVT ppx: lovenox DC planning: Dobhoff vs Transfer This patient was seen by See Shepherd PA-C under the supervision of Dr. Rodas <Will Rodas - Last Filed: 08/21/19 14:19> Reason for Visit: Dysphagia, unable to swallow. Patient has known diagnosis of adenocarcinoma of lower esophagus. Her care is mainly at [facility] with proposed surgery for esophagectomy. Vitals/I&O's: Vital Signs Temp Pulse Resp BP Pulse Ox 98.2 F 80 16 126/72 H 99 08/21/19 09:25 08/21/19 09:25 08/21/19 09:25 08/21/19 09:25 08/21/19 09:25 Oxygen Delivery Method Room Air Weight: 167 lb 15.876 oz Body Mass Index (BMI) 28.8 Finger Stick Blood Glucose 114 Intake and Output for Last 24 Hours 05/31/20 06/01/20 06/02/20 23:59 23:59 23:59 Intake Total 241.67 / 341.67 1128.33 / 1128.33 Output Total 400 / 400 Balance 241.67 / 141.67 728.33 / 728.33 General: Alert, Oriented x3, Cooperative HEENT: Atraumatic, PERRLA, EOMI, Normocephalic Oral: No Gingival or Mucosal Lesions/ Ulcerations, - - No white Kailey patch Neck: Supple, No JVD, Negative Carotid Bruits Lungs: Clear to auscultation, No rhonchi, No wheeze, No rales, Diminished Cardiovascular: Regular rate, Regular Rhythm, Normal S1, Normal S2, No murmurs Abdomen: Bowel Sounds Present, Soft, Non Tender, Non-Distended Extremities: No edema, Capillary Refill Less than 3 Seconds Skin: No rashes, No breakdown Musculoskeletal: No Tenderness to Palpation of Joints or Extremities Neurological: Cranial nerves II-XII grossly intact, Deep Tendon Reflexes 2+/4 and Symmetrical, Neuro grossly intact Psych/Mental Status: Normal Affect, Appropriate Microbiology Past 72 Hours 08/21/19 07:20 Stool C. difficile DNA Amplification - Final Laboratory Results 08/20/19 13:10: Differential Comment COMMENT, Diff Path Review Reviewed, Platelet Estimate MOD 08/21/19 05:25: Sodium 145, Potassium 3.5, Chloride 115 H, Carbon Dioxide 23.0, Anion Gap 7, BUN 22 H, Creatinine 0.82, Estim Creat Clear Calc 59.06, Est GFR (MDRD) Af Amer 90, Est GFR (MDRD) Non-Af 74, BUN/Creatinine Ratio 26.8 H, Glucose 143 H, Calcium 8.4 L 08/21/19 05:25: WBC 1.4 L*, RBC 3.33 L, Hgb 10.1 L, Hct 31.5 L, MCV 94.6, MCH 30.3, MCHC 32.1, RDW Std Deviation 41.8, RDW Coeff of Ely 12.3, Plt Count 54 L, MPV 9.4, Immature Gran % (Auto) 0.000, Neut % (Auto) 70.2 H, Lymph % (Auto) 5.7 L, [place]ch[place] % (Auto) 22.7 H, Eos % (Auto) 0.7, Baso % (Auto) 0.7, Absolute Neuts (auto) 1.0 L, Absolute Lymphs (auto) 0.08 L, Nucleated RBC % 0, Differential Comment SCANNED, Diff Path Review Reviewed, Platelet Estimate MOD DEC Current Medications Aspirin (Aspirin, Baby) 81 mg PO DAILY@0800 [facility] Last Admin: 08/21/19 09:22 Dose: Not Given Documented by: Atorvastatin Calcium (Lipitor) 20 mg PO QHS [facility] Last Admin: 08/20/19 22:48 Dose: Not Given Documented by: Enoxaparin Sodium (Lovenox) 40 mg SC DAILY [facility] Last Admin: 08/21/19 12:36 Dose: 40 mg Documented by: Hydroxyzine Pamoate (Vistaril Pamoate Capsule) 25 mg PO DAILY [facility] Last Admin: 08/21/19 09:23 Dose: Not Given Documented by: Dextrose/Sodium Chloride (Dextrose 5%/0.9% Nacl) 1,000 mls @ 75 mls/hr IV .[id number] [facility] Last Admin: 08/21/19 03:16 Dose: 100 mls/hr Documented by: Pantoprazole Sodium 40 mg/ (Sodium Chloride) 110 mls @ 330 mls/hr IV Q24 [facility] Last Infusion: 08/21/19 10:06 Dose: Infused Documented by: Sodium Chloride () 250 mls @ 15 mls/hr IV .[id number] PRN PRN Reason: Saline Flush Sodium Chloride () 250 mls @ 15 mls/hr IV .[id number] PRN PRN Reason: Additional IVPB Infusion Lidocaine/Diphenhydr/Alum/Mg/Simeth () 10 ml PO Q6H PRN PRN Reason: Pain Score 1-10/10 Lorazepam (Ativan) 0.5 mg IV Q6H PRN PRN PRN Reason: ANXIETY Last Admin: 08/21/19 00:54 Dose: 0.5 mg Documented by: Melatonin (Melatonin) 3 mg PO QHS PRN PRN PRN Reason: INSOMNIA Morphine Sulfate () 4 mg IV Q3H PRN PRN PRN Reason: Pain Score 6-10/10 Last Admin: 08/21/19 04:43 Dose: 4 mg Documented by: Morphine Sulfate (Roxanol (Ir Oral Solution)) 10 mg PO TID PRN PRN Reason: Pain Score 1-10/10 Nystatin (Nystatin) 500,000 unit PO 4X/DAY [facility] Ondansetron HCl (Zofran) 8 mg IV Q6H PRN PRN PRN Reason: NAUSEA/VOMITING Last Admin: 08/21/19 04:46 Dose: 8 mg Documented by: Sertraline HCl (Zoloft) 100 mg PO DAILY [facility] Last Admin: 08/21/19 09:23 Dose: Not Given Documented by: Sodium Chloride () 10 - 40 ml IV UD PRN PRN Reason: SALINE FLUSH Last Admin: 08/21/19 09:46 Dose: 10 ml Documented by: Assessment/Plan This patient was seen in conjunction with See DIEHL. I have independently interviewed and examined the patient and reviewed pertinent history, examination findings, laboratory and plan of management. I have reviewed the note and agree with the documented findings with the few additional points. In brief, patient is admitted for 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 Patient is undergoing chemoradiation. Patient had barium swallow/esophagogram. Images reviewed and discussed with Dr. Brito and barium passes through esophagus to stomach. It is reported as irregular circumferential narrowing of distal esophagus at the GE junction. Started on full liquid diet. If she cannot tolerate liquid diet, this plan for n.p.o. tonight and EGD tomorrow a.m. Currently on conservative nystatin swish/swallow and BMX liquid. Rest comorbidities as mentioned above including GERD, anxiety and depression, diabetes mellitus type 2: Home medications continued. Glucose is controlled I have discussed my assessment with See DIEHL and orders have been reviewed. Inpatient E&M: [id number] [facility] L2
[2019-08-21 14:17] VITALS: BP 126/89; PULSE 84; RESP 16; TEMP 36.8; O2SAT 98
[2019-08-21 17:43] VITALS: BP 115/82; PULSE 79; RESP 16; TEMP 36.8; O2SAT 100
[2019-08-21 21:50] VITALS: BP 119/62; PULSE 74; RESP 16; TEMP 36.6; O2SAT 98
[2019-08-22] VITALS (11 sets, daily range): BP systolic 105–136; BP diastolic 66–83; PULSE 68–88; RESP 16–18; TEMP 36.2–37.2; O2SAT 99–100; BMI 28.8
--- NOTE | 2019-08-22 | EGD_PTH ---
PATIENT: LUCITA JOYCE LOC: MS3 U#:[id number] AGE/SX: 63/F ROOM: ND315 RE08/21/[address]: Dr. Will Rodas MD : [id number] BED: 1 DIS: 08/24/2019 SPEC #: [id number] RECD: 08/22/19 15:28 STATUS: TYRA RELaura #: [id number] BETTE: 08/22/19 00:[address]: Brett Brito DEPT: SURGICAL PATHOLOGY RECD BY: Shahid Tinajero ENTERED: 08/23/19 08:46 SP TYPE: EGD BIOPSY OTHR DR: MD Dr. Fazal Santacruz MD Dr. Prakash Chand, MD Debra Lewis, STUDY SPECIALIST-C Tissues: Esophagus, NOS Procedures: Special Stain Group I Surgery Specimen Level IV GMS Stain (control) Comments: @ Ordering doctor for SUIV edited from to @ by TAMIE at 08/23/19 1243 @ Submitting doctor edited from to @ by MANUELOD at 08/23/19 1243 HEADER OPERATION: EGD ([facility]) PRE-OP DIAGNOSIS: Dysphagia, nausea, vomiting TISSUE SUBMITTED: Esophageal biopsy, rule out Kailey MICROSCOPIC DIAGNOSIS Esophageal biopsy: Fragments of fibrinopurulent material. Special stain for fungi is negative for organisms; matched control is appropriate. See comment. MITCHEL:rajani 08/24/19 COMMENT No mucosal tissue is identified in the submitted specimen. Correlation with clinical, endoscopic findings and appropriate follow up are necessary. MICROSCOPIC DESCRIPTION Slides are reviewed. GROSS DESCRIPTION Received in fixative is one container labeled with the patient's name and designated esophageal biopsy. The specimen consists of a fragment of benjamin soft tissue measuring 0.2 x 0.2 x 0.1 cm. Also present in the container is one elongated fragment measuring 2 x 0.5 x 0.2 cm. The entire specimen is submitted in two cassettes as follows: 1 - soft tissue, 2 - larger fragment. / MITCHEL:rajani 08/23/19 TC:2 CPT: 78407, 91296
[2019-08-22] MEDS: 0.9% Saline Lock 10 ML Syringe IV ×3 (00:15→07:09)
[2019-08-22] MEDS: Ondansetron 4 MG/2 ML Vial 8 MG IV ×2 (00:20→06:56)
--- NOTE | 2019-08-22 05:55 | RAD_ITS ---
STUDY: X-RAY CHEST REASON FOR EXAM: Female, 63 years old. PRE ANESTHESIA EVAL, RADIATION TO THORAX REGION TECHNIQUE: Single AP portable view of the chest. COMPARISON: None. FINDINGS: The lungs are clear and expanded. There is no demonstrated pleural abnormality. Normal size heart. Normal mediastinum and valerie. Normal visualized pulmonary arteries. There is atherosclerotic tortuosity of the aortic arch and descending thoracic aorta. There are degenerative changes of the visualized thoracic spine. Normal visualized ribs, clavicles, and shoulders. Minimal residual contrast is seen in the region of the splenic flexure from prior upper GI series. RAD/Chest 1 View IMPRESSION: No acute abnormality is seen. Electronically Signed: Stuart Contreras, at 9:36 EDT , Service support ,
[2019-08-22 06:34] LABS: Absolute Lymphocyte Count 0.14 X10^3/uL (0.83-4.51); Absolute Neutrophil Count 1.2 X10^3/uL (2.0-7.7); Basophil# 0.01 X10^3/uL; Basophil% 0.6 % (0-1); Eosinophil# 0.02 X10^3/uL; Eosinophils% 1.2 % (0-5); Hematocrit 27.3 % (37-47); Lymphocyte # 0.14 X10^3/ul (4.0); Lymphocyte % 8.2 % (19-41); Mean Corpuscular Hgb 30.8 pg (27.0-32.0); Mean Corpuscular Volume 93.5 fL (81-99); Mean Platelet Vol. 10.2 fl (6.2-12.0); Monocyte# 0.31 X10^3/uL; Monocyte% 18.2 % (0-10); NRBC Flagged by Analyzer 0 % (0-5); Neutrophil # 1.19 X10^3/uL (2.7-7.7); POSITIVE COUNT YES; POSITIVE DIFFERENTIAL YES; RBC Distribution Width CV 12.3 % (11.6-14.6); RBC Distribution Width SD 40.5 fl (35.1-43.9); Red Blood Count 2.92 M/mm3 (4.2-5.4); White Blood Count 1.7 K/mm3 (4.4-11.0)
[2019-08-22 06:36] LABS: Differential Indicated SCAN CRITERIA MET; Platelet Count 49 K/mm3 (150-450)
[2019-08-22 06:55] LABS: Anion Gap 7 (5-15); BUN 13 mg/dL (7-18); BUN/Creat Ratio 16.5 RATIO (10-20); Calcium,Total 8.2 mg/dL (8.5-10.1); Chloride 115 mmol/L (98-107); Creatinine, Serum 0.79 mg/dL (0.55-1.02); Differential Comment SCANNED; EST Glomerular Filtration Rate 77 mL/min (>60); Est Glom Filt Rate - Afr Amer 94 mL/min (>60); Estimated Creatinine Clearance 61.31 ml/min; Glucose 103 mg/dL (74-106); Platelet Estimate MKD DEC (ADEQ); Potassium 3.2 mmol/L (3.5-5.1); Sodium Level 145 mmol/L (136-145)
[2019-08-22] MEDS: Morphine 4 MG/ML Syringe IV (06:55)
[2019-08-22 06:56] LABS: Microcytosis 1+
[2019-08-22] MEDS: LORazepam 2 MG/ML Syringe 0.5 MG IV ×2 (07:09→21:01)
--- NOTE | 2019-08-22 07:34 | PCM.PN.SRG ---
Patient Problems: Active and Suspected Problems (Last Updated 07/10/19 @ 13:05 by Coleen Adair RN) Esophageal cancer (Acute) Vomiting (Acute) Decreased oral intake (Acute) Subjective: Patient reports that she had minimal p.o. intake yesterday and she is still having some pain in the epigastric region. - Physical Exam Vitals/I&O's: Vital Signs Temp Pulse Resp BP Pulse Ox 97.9 F 73 16 121/75 H 100 08/22/19 03:50 08/22/19 03:50 08/22/19 03:50 08/22/19 03:50 08/22/19 03:50 Oxygen Delivery Method Room Air Weight: 167 lb 15.876 oz Body Mass Index (BMI) 28.8 Finger Stick Blood Glucose 114 Intake and Output for Last 24 Hours 08/20/19 08/21/19 08/22/19 23:59 23:59 23:59 Intake Total 241.67 / 341.67 2928.33 / 2988.33 60 / 60 Output Total 1450 / 1850 400 / 400 Balance 241.67 / 141.67 1478.33 / 1138.33 -340 / -340 General: Alert, Oriented x3 Lungs: Normal air movement Cardiovascular: Regular rate, Regular Rhythm Abdomen: Soft, Non Tender, Non-Distended Microbiology Past 72 Hours 08/21/19 07:20 Stool C. difficile DNA Amplification - Final Laboratory Results 08/20/19 13:10: Diff Path Review Reviewed 08/21/19 05:25: Diff Path Review Reviewed 08/22/19 06:18: WBC 1.7 L, RBC 2.92 L, Hgb 9.0 L, Hct 27.3 L, MCV 93.5, MCH 30.8, MCHC 33.0, RDW Std Deviation 40.5, RDW Coeff of [place] 12.3, Plt Count 49 L*, MPV 10.2, Immature Gran % (Auto) 1.800 H, Neut % (Auto) 70.0, Lymph % (Auto) 8.2 L, [place] % (Auto) 18.2 H, Eos % (Auto) 1.2, Baso % (Auto) 0.6, Absolute Neuts (auto) 1.2 L, Absolute Lymphs (auto) 0.14 L, Nucleated RBC % 0, Differential Comment SCANNED, Diff Path Review May foll, Platelet Estimate MKD DEC, Microcytosis 1+ 08/22/19 06:18: Sodium 145, Potassium 3.2 L, Chloride 115 H, Carbon Dioxide 23.0, Anion Gap 7, BUN 13, Creatinine 0.79, Estim Creat Clear Calc 61.31, Est GFR (MDRD) Af Amer 94, Est GFR (MDRD) Non-Af 77, BUN/Creatinine Ratio 16.5, Glucose 103, Calcium 8.2 L Current Medications Atorvastatin Calcium (Lipitor) 20 mg PO QHS [facility] Last Admin: 08/21/19 21:51 Dose: Not Given Documented by: Hydroxyzine Pamoate (Vistaril Pamoate Capsule) 25 mg PO DAILY [facility] Last Admin: 08/21/19 09:23 Dose: Not Given Documented by: Dextrose/Sodium Chloride (Dextrose 5%/0.9% Nacl) 1,000 mls @ 75 mls/hr IV .[id number] [facility] Last Admin: 08/21/19 17:40 Dose: 100 mls/hr Documented by: Pantoprazole Sodium 40 mg/ (Sodium Chloride) 110 mls @ 330 mls/hr IV Q24 [facility] Last Infusion: 08/21/19 10:06 Dose: Infused Documented by: Sodium Chloride () 250 mls @ 15 mls/hr IV .[id number] PRN PRN Reason: Saline Flush Sodium Chloride () 250 mls @ 15 mls/hr IV .[id number] PRN PRN Reason: Additional IVPB Infusion Lidocaine/Diphenhydr/Alum/Mg/Simeth () 10 ml PO Q6H PRN PRN Reason: Pain Score 1-10/10 Lorazepam (Ativan) 0.5 mg IV Q6H PRN PRN PRN Reason: ANXIETY Last Admin: 08/22/19 07:09 Dose: 0.5 mg Documented by: Melatonin (Melatonin) 3 mg PO QHS PRN PRN PRN Reason: INSOMNIA Morphine Sulfate () 4 mg IV Q3H PRN PRN PRN Reason: Pain Score 6-10/10 Last Admin: 08/22/19 06:55 Dose: 4 mg Documented by: Morphine Sulfate (Roxanol (Ir Oral Solution)) 10 mg PO TID PRN PRN Reason: Pain Score 1-10/10 Nystatin (Nystatin) 500,000 unit PO 4X/DAY [facility] Last Admin: 08/21/19 21:51 Dose: Not Given Documented by: Ondansetron HCl (Zofran) 8 mg IV Q6H PRN PRN PRN Reason: NAUSEA/VOMITING Last Admin: 08/22/19 06:56 Dose: 8 mg Documented by: Sertraline HCl (Zoloft) 100 mg PO DAILY [facility] Last Admin: 08/21/19 09:23 Dose: Not Given Documented by: Sodium Chloride () 10 - 40 ml IV UD PRN PRN Reason: SALINE FLUSH Last Admin: 08/22/19 07:09 Dose: 10 ml Documented by: Medical Necessity - Tobacco Use Smoking Status: Never smoker Assessment/Plan All Active Problems (Last Updated 07/10/19 @ 13:05 by Coleen Adair RN) Esophageal cancer (Acute) Vomiting (Acute) Decreased oral intake (Acute) 63-year-old female with esophageal cancer 1. The patient has been having dysphagia as well as pain in the epigastric region. We started her on a full liquid diet but she had minimal p.o. intake. I am concerned for nutritional status. I discussed EGD with CorPak placement today. I will perform an EGD and check for radiation changes or Kailey esophagitis and place a CorPak if possible. This will allow for supplemental tube feedings to ensure that her nutritional status is optimized for surgery. 2. I explained endoscopy in detail to the patient. I explained the risks including but not limited to stroke or heart attack with anesthesia, perforation of the GI tract, bleeding, infection. I explained that any of these could necessitate further emergency surgery. The patient understands and all questions were answered sufficiently. The patient wishes to proceed with procedure. Brett Brito MD Pager: [facility] [address] [place] [address], [address] [place] [address] Office: Procedure Criteria Procedure Type: Essential Procedure Essential: Yes Criteria Statement: On 06/05/2019 the [place] Department of Health ([facility]) Public Order signed by [facility] Director Ayah José M.D., regarding the Management of Non-Essential Surgeries and Procedures for the purpose of preserving Personal Protective Equipment (PPE) and critical hospital capacity and resources within [place] went into effect as of 06/06/2019 at 5:00PM. According to the [facility] Public Order: This action will remain in full force and effect until the State of Emergency declared by the Governor no longer exists or the Director of the [facility] rescinds or modifies this Order. This [facility] order stated all non-essential or elective surgeries and procedures that utilize PPE should be delayed unless there is undue risk to the current or future health of a patient. After reviewing the aforementioned [facility] Public Order and the patient's clinical case, I have determined that the scheduled procedure meets the criteria to go forward. Risk to Patient if Procedure Delayed: Risk of rapidly worsening to severe symptoms if delayed
--- NOTE | 2019-08-22 11:30 | PCM.PN.BLA ---
Progress Note I performed an EGD on the patient this morning. EGD revealed a thick white coating of the entire distal esophagus. Unsure if this is due to radiation of this was Kailey. It was easily removed from the distal esophagus using the scope to push it forward. It stayed lamellar and fashion and easily dissected free from the surrounding esophagus. I did take a biopsy and sent for fungal cultures and advance the rest of the white lining into the stomach to be digested. After this was done the esophagus looked pristine and the GE junction was widely patent with the scope passing through very easily and no signs of obstruction. I did place a CorPak in case this was needed but if the patient is able to tolerate full liquids and not having the pain anymore he can likely be removed. The CorPak would be easy to replace as her GE junction is widely patent and measuring over 1 cm. Brett Brito MD Pager: [facility] [address] [place] [address], [address] [place] [phone] Office: STROKE Vital Signs/Narrative: Vital Signs Temp Pulse Resp BP Pulse Ox 08/22/19 08:43 98.2 F 72 18 126/79 H 100 08/22/19 08:38 98.2 F 72 18 126/79 H 100
--- NOTE | 2019-08-22 11:35 | OP.EGD_ITS ---
Patient Name: Brenda Strauss Procedure Date: 08/22/2019 11:11 AM Date of : 1955 Age: 63 Procedure: Upper GI endoscopy Indications: Dysphagia, Malignant esophageal adenocarcinoma Providers: Brett Brito MD Medicines: Monitored Anesthesia Care Patient Profile: This is a 63 year old female. Refer to note in patient chart for documentation of history and physical. Complications: No immediate complications. Estimated blood loss: Minimal. Procedure: Pre-Anesthesia Assessment: - Prior to the procedure, a History and Physical was performed, and patient medications and allergies were reviewed. The patient's tolerance of previous anesthesia was also reviewed. The risks and benefits of the procedure and the sedation options and risks were discussed with the patient. All questions were answered, and informed consent was obtained. Prior Anticoagulants: The patient has taken no previous anticoagulant or antiplatelet agents. After reviewing the risks and benefits, the patient was deemed in satisfactory condition to undergo the procedure. After obtaining informed consent, the endoscope was passed under direct vision. Throughout the procedure, the patient's blood pressure, pulse, and oxygen saturations were monitored continuously. The gastroscope was introduced through the mouth, and advanced to the second part of duodenum. The upper GI endoscopy was accomplished without difficulty. The patient tolerated the procedure well. Scope In: 11:17:03 AM Scope Out: 11:22:34 AM Total Procedure Duration Time 0 hours 5 minutes 31 seconds Findings: Diffuse, white layer of coating was found in the lower third of the esophagus. Biopsies were taken with a cold forceps for histology. This layer was easily dissected free with the scope and the white material was advanced into the stomach. The GE junction was widely patent and scope passed easily. 10 fr corpak was placed into stomach under direct visualization with 60 cm at nares. The stomach was normal. Impression: - Esophageal plaques were found, suspicious for candidiasis. Biopsied. - Normal stomach. Recommendation: - Full liquid diet. - Continue present medications. - Await pathology results. Procedure Code(s): --- Professional --- 63200, Esophagogastroduodenoscopy, flexible, transoral; with biopsy, single or multiple Diagnosis Code(s): --- Professional --- K22.9, Disease of esophagus, unspecified R13.10, Dysphagia, unspecified C15.9, Malignant neoplasm of esophagus, unspecified CPT copyright 2017 [employer]. All rights reserved. The codes documented in this report are preliminary and upon braille coder review may be revised to meet current compliance requirements. Brett Brito MD 08/22/2019 11:34:51 AM This report has been signed electronically. Number of Addenda: 0 Note Initiated On: 08/22/2019 11:11 AM
--- NOTE | 2019-08-22 11:35 | RAD_ITS ---
STUDY: X-RAY - ABDOMEN/PELVIS REASON FOR EXAM: Female, 63 years old. Post op feeding tube placement TECHNIQUE: Single AP view of the abdomen / pelvis. COMPARISON: None. FINDINGS: The tip of the feeding tube is seen in the distal portion of the stomach. Small amount of residual oral contrast is seen in the colon. RAD/Abdomen Single View (Portable) IMPRESSION: The tip of the feeding tube is in the distal portion of the stomach. Electronically Signed: Stuart Contreras, at 13:06 EDT , Service support ,
--- NOTE | 2019-08-22 11:35 | OP.CCLET_ITS ---
08/22/2019 Sharmaine Alonso Re : Upper GI endoscopy procedure for Brenda Strauss Dear Gavin This procedure was performed on Thursday, August 22, 2019. My impressions and recommendations are as follows: Impressions : - Esophageal plaques were found, suspicious for candidiasis. Biopsied. - Normal stomach. Recommendations : - Full liquid diet. - Continue present medications. - Await pathology results. My findings are described in the full procedure note, which is enclosed. If I can be of further assistance, please feel free to contact me at Doctor phone number(s): , Work: . Sincerely, Brett Brito MD 08/22/2019 11:34:51 AM This report has been signed electronically.
--- NOTE | 2019-08-22 12:01 | PCM.NTREPORT ---
Nutrition Therapy Report - History Nutrition Services has been consulted to:: Manage enteral nutrition Current diet / nutrition support order:: full liquid - Anthropometric Measurements Height:: 5 ft 4 in Weight:: 76.2 kg Body Mass Index (BMI):: 28.8 - Relevant Labs Relevant Labs:: WBC 1.7 K/mm3 (4.4-11.0) L 08/22/19 06:18 RBC 2.92 M/mm3 (4.2-5.4) L 08/22/19 06:18 Hgb 9.0 g/dL (12.0-15.0) L 08/22/19 06:18 Hct 27.3 % (37-47) L 08/22/19 06:18 Plt Count 49 K/mm3 (150-450) L* 08/22/19 06:18 Immature Gran % (Auto) 1.800 % (0.0-0.9) H 08/22/19 06:18 Neut % (Auto) 70.2 % (47-70) H 08/21/19 05:25 Lymph % (Auto) 8.2 % (19-41) L 08/22/19 06:18 [place] % (Auto) 18.2 % (0-10) H 08/22/19 06:18 Absolute Neuts (auto) 1.2 X10^3/uL (2.0-7.7) L 08/22/19 06:18 Absolute Lymphs (auto) 0.14 X10^3/uL (0.83-4.51) L 08/22/19 06:18 Potassium 3.2 mmol/L (3.5-5.1) L 08/22/19 06:18 Chloride 115 mmol/L (98-107) H 08/22/19 06:18 BUN 22 mg/dL (7-18) H 08/21/19 05:25 BUN/Creatinine Ratio 26.8 RATIO (10-20) H 08/21/19 05:25 Glucose 143 mg/dL (74-106) H 08/21/19 05:25 Calcium 8.2 mg/dL (8.5-10.1) L 08/22/19 06:18 AST 13 U/L (15-37) L 08/20/19 13:10 - Assessment Food / Nutrition-Related History:: Pt reports poor PO intake over past 5 weeks. States she hasn't had solid food in 3 weeks. Was trying to drink Ensure or Boost at home but was unable to swallow w/o pain, nausea, or emesis. UBW 185# approx. 5 weeks ago. CBW 168#-9% wt loss, significant for malnutrition. Had jello and sherbert last night w/ poor tolerance per pt report. Plans for EGD and CorPak placement today. - Nutrition Diagnosis Problem / Etiology / Signs & Symptoms (PES):: Severe, acute malnutrition related to swallowing difficulty s/p radiation, chemotherapy treatments as evidenced by 9% wt loss x 5 weeks, less than 50% estimated energy intake >5 days Evidence of Malnutrition Exists:: Yes Severe PCM:: Acute Illness - Nutrition Intervention Nutrition Prescription:: 6230-4778 calories/day, 94-114 g protein/day - Food / Nutrient Delivery Interventions Summary of nutrition intervention:: Will start enteral nutrition support. Given unintentional wt loss >5% in 1 month, chemotherapy, and <50% estimated energy intake >5 days, pt is at high risk for refeeding syndrome. Discussed w/ pt goal of gradual increases in nutrition support via CorPak. Aware RDN will be following for education and support. Pt states she spoke w/ an RDN through [facility], aware RDN available at [facility] as needed. Nutrition support ordered as / adjusted to:: Pivot 1.5 at goal rate of 50mL/hour w/ 150mL H2O flush every 4 hours to provide 1800 calories, 112 g protein, and 1810 mL total fluid/day. Will start tube feeds at 30mL/hour for at least 24 hours and increase by 10mL every 12 hours as pt tolerates until goal rate achieved. Regular diet as tolerated; Ensure w/ medpass if PO diet tolerated Nutrition education provided?: Yes - MNT Monitoring Further MNT monitoring and evaluation required?: Yes MNT Follow-up in:: 1-2 days
[2019-08-22] MEDS: Dextrose 5%/0.9% NaCl 1,000 ML 75 ML IV (12:10)
[2019-08-22] MEDS: Sertraline 100 MG Tablet PO (12:14)
[2019-08-22] MEDS: hydrOXYzine PAM 25 MG Capsule PO (12:14)
[2019-08-22] MEDS: NYSTATIN 500,000 UNIT/5 ML UDC 500000 UNIT PO ×2 (12:14→21:04)
[2019-08-22 12:31] LABS: Pathologist Review Reviewed
--- NOTE | 2019-08-22 14:57 | PCM.PN.HOSP ---
Patient Problems: Active and Suspected Problems (Last Updated 07/10/19 @ 13:05 by Coleen Adair RN) Esophageal cancer (Acute) Vomiting (Acute) Decreased oral intake (Acute) Reason for Visit: Dysphagia, unable to swallow. Patient has history of adenocarcinoma of lower esophagus. Objective: Patient had EGD in the morning. Discussed with surgeon Dr. Brito. Patient has proposed surgery for esophagectomy including clinic main campus. On physical exam General: Alert, Oriented x3, Cooperative HEENT: Atraumatic, PERRLA, EOMI, Normocephalic Oral: No Gingival or Mucosal Lesions/ Ulcerations, No white Kailey patch Neck: Supple, No JVD, Negative Carotid Bruits Lungs: Clear to auscultation, No rhonchi, No wheeze, No rales, Diminished Cardiovascular: Regular rate, Regular Rhythm, Normal S1, Normal S2, No murmurs Abdomen: Bowel Sounds Present, Soft, Non Tender, Non-Distended Extremities: No edema, Capillary Refill Less than 3 Seconds Skin: No rashes, No breakdown Musculoskeletal: No Tenderness to Palpation of Joints or Extremities Neurological: Cranial nerves II-XII grossly intact, Deep Tendon Reflexes 2+/4 and Symmetrical, Neuro grossly intact Psych/Mental Status: Normal Affect, Appropriate Vitals/I&O's: Vital Signs Temp Pulse Resp BP Pulse Ox 98.9 F 82 16 127/82 H 100 08/22/19 12:19 08/22/19 12:19 08/22/19 12:19 08/22/19 12:19 08/22/19 12:19 Oxygen Delivery Method Room Air Weight: 167 lb 15.876 oz Body Mass Index (BMI) 28.8 Finger Stick Blood Glucose 114 Intake and Output for Last 24 Hours 08/20/19 08/21/19 08/22/19 23:59 23:59 23:59 Intake Total 241.67 / 341.67 2928.33 / 2988.33 1170 / 1170 Output Total 1450 / 1850 800 / 800 Balance 241.67 / 141.67 1478.33 / 1138.33 370 / 370 Microbiology Past 72 Hours 08/21/19 07:20 Stool C. difficile DNA Amplification - Final Laboratory Results 08/22/19 06:18: WBC 1.7 L, RBC 2.92 L, Hgb 9.0 L, Hct 27.3 L, MCV 93.5, MCH 30.8, MCHC 33.0, RDW Std Deviation 40.5, RDW Coeff of Ely 12.3, Plt Count 49 L*, MPV 10.2, Immature Gran % (Auto) 1.800 H, Neut % (Auto) 70.0, Lymph % (Auto) 8.2 L, [place] % (Auto) 18.2 H, Eos % (Auto) 1.2, Baso % (Auto) 0.6, Absolute Neuts (auto) 1.2 L, Absolute Lymphs (auto) 0.14 L, Nucleated RBC % 0, Differential Comment SCANNED, Diff Path Review Reviewed, Platelet Estimate MKD DEC, Microcytosis 1+ 08/22/19 06:18: Sodium 145, Potassium 3.2 L, Chloride 115 H, Carbon Dioxide 23.0, Anion Gap 7, BUN 13, Creatinine 0.79, Estim Creat Clear Calc 61.31, Est GFR (MDRD) Af Amer 94, Est GFR (MDRD) Non-Af 77, BUN/Creatinine Ratio 16.5, Glucose 103, Calcium 8.2 L 08/22/19 07:30: COVID-19 (STALIN) Not Detected Current Medications Atorvastatin Calcium (Lipitor) 20 mg PO QHS [facility] Last Admin: 08/21/19 21:51 Dose: Not Given Documented by: Hydroxyzine Pamoate (Vistaril Pamoate Capsule) 25 mg PO DAILY [facility] Last Admin: 08/22/19 12:14 Dose: 25 mg Documented by: Dextrose/Sodium Chloride (Dextrose 5%/0.9% Nacl) 1,000 mls @ 75 mls/hr IV .[id number] [facility] Last Admin: 08/22/19 12:10 Dose: 75 mls/hr Documented by: Pantoprazole Sodium 40 mg/ (Sodium Chloride) 110 mls @ 330 mls/hr IV Q24 [facility] Last Infusion: 08/22/19 09:41 Dose: Infused Documented by: Sodium Chloride () 250 mls @ 15 mls/hr IV .[id number] PRN PRN Reason: Saline Flush Sodium Chloride () 250 mls @ 15 mls/hr IV .[id number] PRN PRN Reason: Additional IVPB Infusion Fluconazole (Diflucan) 200 mg in 100 mls @ 100 mls/hr IV X1 ONE Stop: 08/23/19 08:59 Lactose (Pivot 1.5 Julio) 1,000 mls @ 30 mls/hr GT .[id number] [facility] Lidocaine/Diphenhydr/Alum/Mg/Simeth () 10 ml PO Q6H PRN PRN Reason: Pain Score 1-10/10 Lorazepam (Ativan) 0.5 mg IV Q6H PRN PRN PRN Reason: ANXIETY Last Admin: 08/22/19 07:09 Dose: 0.5 mg Documented by: Melatonin (Melatonin) 3 mg PO QHS PRN PRN PRN Reason: INSOMNIA Morphine Sulfate () 4 mg IV Q3H PRN PRN PRN Reason: Pain Score 6-10/10 Last Admin: 08/22/19 06:55 Dose: 4 mg Documented by: Morphine Sulfate (Roxanol (Ir Oral Solution)) 10 mg PO TID PRN PRN Reason: Pain Score 1-10/10 Nystatin (Nystatin) 500,000 unit PO 4X/DAY [facility] Last Admin: 08/22/19 12:14 Dose: 500,000 unit Documented by: Ondansetron HCl (Zofran) 8 mg IV Q6H PRN PRN PRN Reason: NAUSEA/VOMITING Last Admin: 08/22/19 06:56 Dose: 8 mg Documented by: Sertraline HCl (Zoloft) 100 mg PO DAILY [facility] Last Admin: 08/22/19 12:14 Dose: 100 mg Documented by: Sodium Chloride () 10 - 40 ml IV UD PRN PRN Reason: SALINE FLUSH Last Admin: 08/22/19 07:09 Dose: 10 ml Documented by: [facility] Vital Signs/Narrative: Vital Signs Temp Pulse Resp BP Pulse Ox 08/22/19 12:19 98.9 F 82 16 127/82 H 100 08/22/19 11:46 97.1 F L 68 16 115/68 100 08/22/19 11:45 79 16 117/68 99 08/22/19 11:40 84 16 105/75 100 08/22/19 11:37 78 16 114/73 100 08/22/19 11:33 97.1 F L 75 16 114/66 100 Medical Necessity - Tobacco Use Smoking Status: Never smoker Assessment/Plan All Active Problems (Last Updated 07/10/19 @ 13:05 by Coleen Adair RN) Esophageal cancer (Acute) Vomiting (Acute) Decreased oral intake (Acute) patient is 63-year-old female admitted for 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 Patient is undergoing chemoradiation. 1. Dysphagia most probably secondary to esophageal plaque suspicious for candidiasis with history of adenocarcinoma of distal esophagus/GE junction: EGD done found diffuse about 4 cm length, circumferential white layer, easily dissected/removed in lower third of esophagus biopsy was taken. GE junction widely patent and 10 [place] CorPak was placed. Earlier barium esophagram was done and shows irregular circumferential narrowing of distal esophagus and GE junction. 2. Mild hypokalemia: Potassium is replaced 3. GERD - ppi IV 4. Depression/anxiety- zoloft, melatonin, ativan, vistaril 5. Hx DMt2 - no medication given inability to eat for some time glucose is controlled 6. Severe acute malnutrition: Patient had 9% weight loss, mild muscle atrophy decreased p.o. intake in the last 1 month. Seen by senior program analyst. On tube feed at 30 mils per hour for at least 24 hours and then increase to 1 mL every 12 hours as per tolerated. 5.1.5 at goal of 50 mill per hour with 150 mill water flush every 4 hour. Total calories at 1800 mL. 112 g protein. DVT ppx: lovenox Inpatient E&M: [id number] Subs Hosp L2
--- NOTE | 2019-08-22 15:19 | CASEMGMT ---
RN CRIS Face to Face with patient for initial transition planning/care coordination assessment. RN CM introduced self and role at [facility]. Patient lying in bed, alert and oriented. Patient willing to participate in assessment and is able to answer all questions appropriately. Care providers, pharmacy, and demographics verified. Patient wishes to discharge home, not sure of needs at this time. Patient states she has no further needs or concerns at this time. CM to follow for discharge planning needs that may arise. PCP: Sharmaine Alonso [employer]PUTER [employer] EXAMINER Specialists: Jocelynn, oncologist, Lennie; Arturo, radiology oncology Preferred Pharmacy: [facility]: [employer] Prescription Benefit: yes Living Will/HPOA: yes, Anson Strauss LNOK: Living Arrangements: Patient lives with in 2 story home with bed and bath on the main level. 3 steps and railing to enter the home. Patient states she is independent at home. Transportation: self/ DME/HHC: Patient denies any DME at home. Patient denies any previous HHC. Will continue to monitor for discharge needs. Disposition Plan: Patient to discharge home with family support and follow-up plans in place. Selin EWING, RN, CM
[2019-08-22 16:07] LABS: Magnesium 1.6 mg/dL (1.6-2.6)
[2019-08-22] MEDS: Pivot 1.5 Cal 1,000 ML 30 ML GT (16:13)
[2019-08-22] MEDS: Potassium Chloride 10mEq/100mL 10 MEQ/100 ML IV.SOLN. 100 MEQ IV BOLUS ×4 (17:59→22:08)
[2019-08-22] MEDS: Dextrose 5%/0.9% NaCl 1,000 ML 30 ML IV (19:14)
[2019-08-22] MEDS: BMX LIQUID 180 ML 10 ML PO (21:01)
[2019-08-23 02:42] VITALS: BP 104/76; PULSE 85; RESP 16; TEMP 36.9; O2SAT 98
[2019-08-23 06:43] LABS: Anion Gap 6 (5-15); BUN 12 mg/dL (7-18); BUN/Creat Ratio 16.3 RATIO (10-20); Calcium,Total 8.1 mg/dL (8.5-10.1); Chloride 112 mmol/L (98-107); Creatinine, Serum 0.73 mg/dL (0.55-1.02); EST Glomerular Filtration Rate 84 mL/min (>60); Est Glom Filt Rate - Afr Amer 102 mL/min (>60); Estimated Creatinine Clearance 66.35 ml/min; Glucose 118 mg/dL (74-106); Potassium 3.3 mmol/L (3.5-5.1); Sodium Level 142 mmol/L (136-145)
[2019-08-23 09:51] VITALS: BP 110/71; PULSE 78; RESP 18; TEMP 37; O2SAT 98
[2019-08-23] MEDS: Pivot 1.5 Cal 1,000 ML 40 ML GT (10:05)
--- NOTE | 2019-08-23 10:38 | PN_ITS ---
Patient Problems: Active and Suspected Problems (Last Updated 07/10/19 @ 13:05 by Coleen Adair RN) Esophageal cancer (Acute) Vomiting (Acute) Decreased oral intake (Acute) Reason for Visit: Patient is on tube feed 10 mL/h along with oral feed. Patient seen by dietitian is on slow tube feed to prevent refeeding syndrome. Vitals/I&O's: Vital Signs Temp Pulse Resp BP Pulse Ox 98.6 F 78 18 110/71 98 08/23/19 09:51 08/23/19 09:51 08/23/19 09:51 08/23/19 09:51 08/23/19 09:51 Oxygen Delivery Method Room Air Weight: 175 lb 11.335 oz Body Mass Index (BMI) 28.8 Finger Stick Blood Glucose 114 Intake and Output for Last 24 Hours 08/21/19 08/22/19 08/23/19 23:59 23:59 23:59 Intake Total 2928.33 / 2988.33 2770 / 2770 250 / 250 Output Total 1450 / 1850 800 / 800 Balance 1478.33 / 1138.33 1970 / 1970 250 / 250 General: Alert, Oriented x3, Cooperative HEENT: Atraumatic, PERRLA, EOMI, Normocephalic Neck: Supple, No JVD, Negative Carotid Bruits Lungs: Clear to auscultation, Normal air movement Cardiovascular: Regular rate, Regular Rhythm, Normal S1, Normal S2, No murmurs Abdomen: Bowel Sounds Present, Soft, Non Tender, Non-Distended Extremities: No edema, Capillary Refill Less than 3 Seconds, Edema Skin: No rashes, No breakdown Musculoskeletal: No Tenderness to Palpation of Joints or Extremities, Arthritic Changes Neurological: Cranial nerves II-XII grossly intact, Deep Tendon Reflexes 2+/4 and Symmetrical, Neuro grossly intact Psych/Mental Status: Normal Affect, Appropriate Microbiology Past 72 Hours 08/21/19 07:20 Stool C. difficile DNA Amplification - Final Laboratory Results 08/22/19 06:18: Diff Path Review Reviewed 08/22/19 06:18: Magnesium 1.6 08/23/19 05:30: Sodium 142, Potassium 3.3 L, Chloride 112 H, Carbon Dioxide 24.0, Anion Gap 6, BUN 12, Creatinine 0.73, Estim Creat Clear Calc 66.35, Est GFR (MDRD) Af Amer 102, Est GFR (MDRD) Non-Af 84, BUN/Creatinine Ratio 16.3, Glucose 118 H, Calcium 8.1 L Current Medications Atorvastatin Calcium (Lipitor) 20 mg PO QHS [facility] Last Admin: 08/22/19 20:43 Dose: Not Given Documented by: Hydroxyzine Pamoate (Vistaril Pamoate Capsule) 25 mg PO DAILY [facility] Last Admin: 08/22/19 12:14 Dose: 25 mg Documented by: Dextrose/Sodium Chloride (Dextrose 5%/0.9% Nacl) 1,000 mls @ 30 mls/hr IV .[id number] [facility] Last Admin: 08/22/19 19:14 Dose: 30 mls/hr Documented by: Pantoprazole Sodium 40 mg/ (Sodium Chloride) 110 mls @ 330 mls/hr IV Q24 [facility] Last Infusion: 08/22/19 09:41 Dose: Infused Documented by: Sodium Chloride () 250 mls @ 15 mls/hr IV .[id number] PRN PRN Reason: Saline Flush Sodium Chloride () 250 mls @ 15 mls/hr IV .[id number] PRN PRN Reason: Additional IVPB Infusion Lactose (Pivot 1.5 Julio) 1,000 mls @ 40 mls/hr GT .Q25H [facility] Lidocaine/Diphenhydr/Alum/Mg/Simeth () 10 ml PO Q6H PRN PRN Reason: Pain Score 1-10/10 Last Admin: 08/22/19 21:01 Dose: 10 ml Documented by: Lorazepam (Ativan) 0.5 mg IV Q6H PRN PRN PRN Reason: ANXIETY Last Admin: 08/22/19 21:01 Dose: 0.5 mg Documented by: Melatonin (Melatonin) 3 mg PO QHS PRN PRN PRN Reason: INSOMNIA Morphine Sulfate () 4 mg IV Q3H PRN PRN PRN Reason: Pain Score 6-10/10 Last Admin: 08/22/19 06:55 Dose: 4 mg Documented by: Morphine Sulfate (Roxanol (Ir Oral Solution)) 10 mg PO TID PRN PRN Reason: Pain Score 1-10/10 Nystatin (Nystatin) 500,000 unit PO 4X/DAY [facility] Last Admin: 08/22/19 21:04 Dose: 500,000 unit Documented by: Ondansetron HCl (Zofran) 8 mg IV Q6H PRN PRN PRN Reason: NAUSEA/VOMITING Last Admin: 08/22/19 06:56 Dose: 8 mg Documented by: Potassium Chloride (Potassium Chl Soln) 40 meq NG DAILYCM [facility] Last Admin: 08/23/19 08:21 Dose: 40 meq Documented by: Sertraline HCl (Zoloft) 100 mg PO DAILY [facility] Last Admin: 08/22/19 12:14 Dose: 100 mg Documented by: Sodium Chloride () 10 - 40 ml IV UD PRN PRN Reason: SALINE FLUSH Last Admin: 08/22/19 07:09 Dose: 10 ml Documented by: STROKE Vital Signs/Narrative: Vital Signs Temp Pulse Resp BP Pulse Ox 08/23/19 09:51 98.6 F 78 18 110/71 98 Medical Necessity - Tobacco Use Smoking Status: Never smoker Assessment/Plan All Active Problems (Last Updated 07/10/19 @ 13:05 by Coleen Adair RN) Esophageal cancer (Acute) Vomiting (Acute) Decreased oral intake (Acute) patient is 63-year-old female admitted for 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 Patient is undergoing chemoradiation. 1. Dysphagia most probably secondary to esophageal plaque suspicious for candidiasis with history of adenocarcinoma of distal esophagus/GE junction: EGD done found diffuse about 4 cm length, circumferential white layer, easily di ssected/removed in lower third of esophagus biopsy was taken. GE junction widely patent and 10 [place] CorPak was placed. Earlier barium esophagram was done and shows irregular circumferential narrowing of distal esophagus and GE junction. 6/4 on slow tube feed 30 mL/h, to increase 10 mL/h every 12 hour for goal of 50 mill per hour. Being managed by shipping room helper. Patient also had 2-3 loose bowel movement most probably osmotic diarrhea 2. Mild hypokalemia and hypomagnesemia: Potassium is replaced. Magnesium 1.6 replaced. 3. GERD - ppi IV 4. Depression/anxiety- zoloft, melatonin, ativan, vistaril 5. Hx DMt2 - no medication given inability to eat for some time glucose is controlled 6. Severe acute malnutrition: Patient had 9% weight loss, mild muscle atrophy decreased p.o. intake in the last 1 month. Seen by shipping room helper. Total calories at 1800 mL. 112 g protein. DVT ppx: lovenox Microbiology Past 72 Hours 06/02/20 07:20 Stool C. difficile DNA Amplification - Final Laboratory Results 08/22/19 06:18: Diff Path Review Reviewed 08/22/19 06:18: Magnesium 1.6 08/23/19 05:30: Sodium 142, Potassium 3.3 L, Chloride 112 H, Carbon Dioxide 24.0, Anion Gap 6, BUN 12, Creatinine 0.73, Estim Creat Clear Calc 66.35, Est GFR (MDRD) Af Amer 102, Est GFR (MDRD) Non-Af 84, BUN/Creatinine Ratio 16.3, Glucose 118 H, Calcium 8.1 L 08/23/19 05:30: WBC Pending, RBC Pending, Hgb Pending, Hct Pending, MCV Pending, MCH Pending, MCHC Pending, RDW Std Deviation Pending, RDW Coeff of [place] Pending, Plt Count Pending, Neut % (Auto) Pending, Absolute Neuts (auto) Pending Inpatient E&M: [id number] Subs Hosp L2
[2019-08-23 10:52] LABS: Absolute Lymphocyte Count 0.17 X10^3/uL (0.83-4.51); Absolute Neutrophil Count 1.6 X10^3/uL (2.0-7.7); Basophil# 0.01 X10^3/uL; Basophil% 0.4 % (0-1); Eosinophil# 0.01 X10^3/uL; Eosinophils% 0.4 % (0-5); Hematocrit 25.7 % (37-47); Hemoglobin 8.6 g/dL (12.0-15.0); Lymphocyte # 0.17 X10^3/ul (4.0); Lymphocyte % 7.6 % (19-41); Mean Corp Hgb Conc 33.5 g/dL (32-36); Mean Corpuscular Hgb 31.3 pg (27.0-32.0); Mean Corpuscular Volume 93.5 fL (81-99); Mean Platelet Vol. 9.9 fl (6.2-12.0); Monocyte# 0.39 X10^3/uL; Monocyte% 17.3 % (0-10); NRBC Flagged by Analyzer 0 % (0-5); Neutrophil # 1.64 X10^3/uL (2.7-7.7); POSITIVE COUNT YES; POSITIVE DIFFERENTIAL YES; RBC Distribution Width CV 12.7 % (11.6-14.6); RBC Distribution Width SD 40.8 fl (35.1-43.9); Red Blood Count 2.75 M/mm3 (4.2-5.4); White Blood Count 2.3 K/mm3 (4.4-11.0)
[2019-08-23 10:54] LABS: Differential Indicated SCAN CRITERIA MET; Platelet Count 50 K/mm3 (150-450)
[2019-08-23] MEDS: Sertraline 100 MG Tablet PO (11:08)
[2019-08-23] MEDS: NYSTATIN 500,000 UNIT/5 ML UDC 500000 UNIT PO ×4 (11:08→21:01)
[2019-08-23] MEDS: hydrOXYzine PAM 25 MG Capsule PO (11:08)
[2019-08-23 11:23] LABS: Platelet Estimate MOD DEC (ADEQ)
--- NOTE | 2019-08-23 11:57 | NT.THERAPY_ITS ---
Nutrition Therapy Report - History Nutrition Services has been consulted to:: Manage enteral nutrition Current diet / nutrition support order:: Pivot 1.5 at 30mL/hour; full liquid diet - Anthropometric Measurements Height:: 5 ft 4 in Weight:: 79.7 kg Body Mass Index (BMI):: 30.1 - Relevant Labs Relevant Labs:: WBC 2.3 K/mm3 (4.4-11.0) L 08/23/19 05:30 RBC 2.75 M/mm3 (4.2-5.4) L 08/23/19 05:30 Hgb 8.6 g/dL (12.0-15.0) L 08/23/19 05:30 Hct 25.7 % (37-47) L 08/23/19 05:30 Plt Count 50 K/mm3 (150-450) L* 08/23/19 05:30 Immature Gran % (Auto) 1.300 % (0.0-0.9) H 08/23/19 05:30 Neut % (Auto) 73.0 % (47-70) H 08/23/19 05:30 Lymph % (Auto) 7.6 % (19-41) L 08/23/19 05:30 [place] % (Auto) 17.3 % (0-10) H 08/23/19 05:30 Absolute Neuts (auto) 1.6 X10^3/uL (2.0-7.7) L 08/23/19 05:30 Absolute Lymphs (auto) 0.17 X10^3/uL (0.83-4.51) L 08/23/19 05:30 Potassium 3.3 mmol/L (3.5-5.1) L 08/23/19 05:30 Chloride 112 mmol/L (98-107) H 08/23/19 05:30 BUN 22 mg/dL (7-18) H 08/21/19 05:25 BUN/Creatinine Ratio 26.8 RATIO (10-20) H 08/21/19 05:25 Glucose 118 mg/dL (74-106) H 08/23/19 05:30 Calcium 8.1 mg/dL (8.5-10.1) L 08/23/19 05:30 AST 13 U/L (15-37) L 08/20/19 13:10 - Assessment Food / Nutrition-Related History:: Tube feeds via CorPak started around 1700 yesterday. Tolerating at 30mL/hour w/ no residuals noted. Some diarrhea reported. Potassium and magnesium replaced today. Wt increase of 3.5 kg since admission. Plans to discharge home w/ CorPak. Oral diet ordered- minimal PO intake at this time. - Nutrition Diagnosis Problem / Etiology / Signs & Symptoms (PES):: Severe, acute malnutrition related to swallowing difficulty s/p radiation, chemotherapy treatments as evidenced by 9% wt loss x 5 weeks, less than 50% estimated energy intake >5 days Evidence of Malnutrition Exists:: Yes Severe PCM:: Acute Illness - Nutrition Intervention Nutrition Prescription:: [id number] calories/day, 94-114 g protein/day - Food / Nutrient Delivery Interventions Summary of nutrition intervention:: Discussed w/ hopsitalist and case managment. Will delay discharge today until tube feed goal rate is achieved and tolerated. Concerns for refeeding syndrome. Will transition pt to bolus feeds tomorrow prior to discharge. Order for home tube feed supplies completed, awaiting provider signature. CM assisting w/ ordering home supplies. Provided pt w/ instructions for home tube feeds. Nursing staff to assist w/ further education prior to discharge. For home tube feeds- goal will be 5 cartons per day (8 oz per carton) of Pivot 1.5 w/ 90 mL flush before and after each feed to provide 1775 calories, 111 g protein, and 1800mL total fluid per day. Nutrition support ordered as / adjusted to:: Pivot 1.5 erich advanced to 40mL/hour at 1000. Continue w/ 150mL H2O flush every 4 hours. Advance tube feeds as tolerated to 50mL/hour at 1800. Allow tube feeds to run at 50mL/hour (goal rate) for 8 hours. Hold tube feeds at 0200 for bolus feeding trial in the AM. Recommend trialing bolus feeds between 0800 and 0900 tomorrow. Bolus feeds will be 237mL (8oz) 5x/day w/ 90mL H2O flush before and after each feed. Nutrition education provided?: Yes - Discussed home tube feed order w/ pt. Handout provided - MNT Monitoring MNT Follow-up in:: 1-2 days - please call clinicial dietitian at [phone] with questions.
[2019-08-23 12:24] VITALS: BMI 30.1
--- NOTE | 2019-08-23 15:03 | CASEMGMT ---
RN CM received update that patient will need tube feed and supplies at discharge. RN CM received script for tube feed and supplies. Per boilermaker helper, [facility] is their preferred provider. RN CM in to discuss discharge needs. RN CM provided list of DME and HHC to patient. Patient is agreeable to [facility] for tube feed and [facility]. ANTONIO CM sent referrals to [facility] and [facility]. ANTONIO LYNCH will continue to follow this patient and plan for a safe discharge.
[2019-08-23 16:19] VITALS: BP 111/76; PULSE 81; RESP 18; TEMP 37.1; O2SAT 98
[2019-08-23 16:33] VITALS: RESP 18
[2019-08-23] MEDS: Pivot 1.5 Cal 1,000 ML 50 ML GT (18:25)
[2019-08-23] MEDS: Dextrose 5%/0.9% NaCl 1,000 ML 30 ML IV (19:36)
[2019-08-23 20:53] VITALS: BP 116/77; PULSE 78; RESP 16; TEMP 36.8; O2SAT 98
[2019-08-24 03:03] VITALS: BP 130/84; PULSE 83; RESP 16; TEMP 36.7; O2SAT 99
[2019-08-24 06:08] LABS: Absolute Neutrophil Count 1.8 X10^3/uL (2.0-7.7); Basophil# 0.01 X10^3/uL; Basophil% 0.4 % (0-1); Eosinophil# 0.01 X10^3/uL; Eosinophils% 0.4 % (0-5); Hematocrit 27.8 % (37-47); Lymphocyte % 8.6 % (19-41); Mean Corp Hgb Conc 32.4 g/dL (32-36); Mean Corpuscular Hgb 30.5 pg (27.0-32.0); Mean Corpuscular Volume 94.2 fL (81-99); Mean Platelet Vol. 10.1 fl (6.2-12.0); Monocyte# 0.33 X10^3/uL; Monocyte% 14.2 % (0-10); NRBC Flagged by Analyzer 0 % (0-5); Neutrophil # 1.75 X10^3/uL (2.7-7.7); Neutrophil % 75.1 % (47-70); POSITIVE COUNT YES; POSITIVE DIFFERENTIAL YES; Red Blood Count 2.95 M/mm3 (4.2-5.4); White Blood Count 2.3 K/mm3 (4.4-11.0)
[2019-08-24 06:15] LABS: Differential Indicated SCAN CRITERIA MET
[2019-08-24 06:16] LABS: Platelet Count 49 K/mm3 (150-450)
[2019-08-24 06:27] LABS: Anion Gap 5 (5-15); BUN 11 mg/dL (7-18); Calcium,Total 8.3 mg/dL (8.5-10.1); Chloride 115 mmol/L (98-107); Creatinine, Serum 0.69 mg/dL (0.55-1.02); EST Glomerular Filtration Rate 91 mL/min (>60); Est Glom Filt Rate - Afr Amer 110 mL/min (>60); Estimated Creatinine Clearance 70.19 ml/min; Glucose 103 mg/dL (74-106); Magnesium 1.8 mg/dL (1.6-2.6); Potassium 4.1 mmol/L (3.5-5.1); Sodium Level 146 mmol/L (136-145)
[2019-08-24 06:32] LABS: Phosphorus 2.8 mg/dL (2.5-4.9)
[2019-08-24 06:58] LABS: Differential Comment SCANNED
--- NOTE | 2019-08-24 08:45 | PN_ITS ---
Patient Problems: Active and Suspected Problems (Last Updated 07/10/19 @ 13:05 by Coleen Adair RN) Esophageal cancer (Acute) Vomiting (Acute) Decreased oral intake (Acute) Vitals/I&O's: Vital Signs Temp Pulse Resp BP Pulse Ox 98.1 F 83 16 130/84 H 99 08/24/19 03:03 08/24/19 03:03 08/24/19 03:03 08/24/19 03:03 08/24/19 03:03 Oxygen Delivery Method Room Air Weight: 175 lb 7.807 oz Body Mass Index (BMI) 30.1 Finger Stick Blood Glucose 114 Intake and Output for Last 24 Hours 08/22/19 08/23/19 08/24/19 23:59 23:59 23:59 Intake Total 2770 / 2770 2390 / 2390 150 / 150 Output Total 800 / 800 Balance 1969 / 1969 2390 / 2390 150 / 150 Microbiology Past 72 Hours 08/21/19 07:20 Stool C. difficile DNA Amplification - Final Laboratory Results 08/23/19 05:30: WBC 2.3 L, RBC 2.75 L, Hgb 8.6 L, Hct 25.7 L, MCV 93.5, MCH 31.3, MCHC 33.5, RDW Std Deviation 40.8, RDW Coeff of [place] 12.7, Plt Count 50 L*, MPV 9.9, Immature Gran % (Auto) 1.300 H, Neut % (Auto) 73.0 H, Lymph % (Auto) 7.6 L, [place] % (Auto) 17.3 H, Eos % (Auto) 0.4, Baso % (Auto) 0.4, Absolute Neuts (auto) 1.6 L, Absolute Lymphs (auto) 0.17 L, Nucleated RBC % 0, Differential Comment COMMENT, Diff Path Review July foll, Platelet Estimate MOD 08/24/19 05:52: Sodium 146 H, Potassium 4.1, Chloride 115 H, Carbon Dioxide 26.0, Anion Gap 5, BUN 11, Creatinine 0.69, Estim Creat Clear Calc 70.19, Est GFR (MDRD) Af Amer 110, Est GFR (MDRD) Non-Af 91, BUN/Creatinine Ratio 16.0, Glucose 103, Calcium 8.3 L, Magnesium 1.8 08/24/19 05:52: WBC 2.3 L, RBC 2.95 L, Hgb 9.0 L, Hct 27.8 L, MCV 94.2, MCH 30.5, MCHC 32.4, RDW Std Deviation 42.0, RDW Coeff of [place] 13.0, Plt Count 49 L*, MPV 10.1, Immature Gran % (Auto) 1.300 H, Neut % (Auto) 75.1 H, Lymph % (Auto) 8.6 L, [place] % (Auto) 14.2 H, Eos % (Auto) 0.4, Baso % (Auto) 0.4, Absolute Neuts (auto) 1.8 L, Absolute Lymphs (auto) 0.20 L, Nucleated RBC % 0, Differential Comment SCANNED, Diff Path Review July08/24/19 05:52: Phosphorus 2.8 Current Medications Atorvastatin Calcium (Lipitor) 20 mg PO QHS [facility] Last Admin: 08/23/19 21:01 Dose: Not Given Documented by: Hydroxyzine Pamoate (Vistaril Pamoate Capsule) 25 mg PO DAILY [facility] Last Admin: 08/23/19 11:08 Dose: 25 mg Documented by: Dextrose/Sodium Chloride (Dextrose 5%/0.9% Nacl) 1,000 mls @ 30 mls/hr IV .[id number] [facility] Last Admin: 08/23/19 19:36 Dose: 30 mls/hr Documented by: Pantoprazole Sodium 40 mg/ (Sodium Chloride) 110 mls @ 330 mls/hr IV Q24 [facility] Last Infusion: 08/23/19 12:10 Dose: Infused Documented by: Sodium Chloride () 250 mls @ 15 mls/hr IV .[id number] PRN PRN Reason: Saline Flush Sodium Chloride () 250 mls @ 15 mls/hr IV .[id number] PRN PRN Reason: Additional IVPB Infusion Lactose (Pivot 1.5 Julio) 237 ml GT 5X/DAY [facility] Lidocaine/Diphenhydr/Alum/Mg/Simeth () 10 ml PO Q6H PRN PRN Reason: Pain Score 1-10/10 Last Admin: 08/22/19 21:01 Dose: 10 ml Documented by: Lorazepam (Ativan) 0.5 mg IV Q6H PRN PRN PRN Reason: ANXIETY Last Admin: 08/22/19 21:01 Dose: 0.5 mg Documented by: Melatonin (Melatonin) 3 mg PO QHS PRN PRN PRN Reason: INSOMNIA Morphine Sulfate () 4 mg IV Q3H PRN PRN PRN Reason: Pain Score 6-10/10 Last Admin: 08/22/19 06:55 Dose: 4 mg Documented by: Morphine Sulfate (Roxanol (Ir Oral Solution)) 10 mg PO TID PRN PRN Reason: Pain Score 1-10/10 Nystatin (Nystatin) 500,000 unit PO 4X/DAY [facility] Last Admin: 08/23/19 21:01 Dose: 500,000 unit Documented by: Ondansetron HCl (Zofran) 8 mg IV Q6H PRN PRN PRN Reason: NAUSEA/VOMITING Last Admin: 08/22/19 06:56 Dose: 8 mg Documented by: Potassium Chloride (Potassium Chl Soln) 40 meq NG DAILYCM [facility] Last Admin: 08/23/19 08:21 Dose: 40 meq Documented by: Sertraline HCl (Zoloft) 100 mg PO DAILY [facility] Last Admin: 08/23/19 11:08 Dose: 100 mg Documented by: Sodium Chloride () 10 - 40 ml IV UD PRN PRN Reason: SALINE FLUSH Last Admin: 08/22/19 07:09 Dose: 10 ml Documented by: Medical Necessity - Tobacco Use Smoking Status: Never smoker Assessment/Plan All Active Problems (Last Updated 07/10/19 @ 13:05 by Coleen Adair RN) Esophageal cancer (Acute) Vomiting (Acute) Decreased oral intake (Acute) patient is 63-year-old female admitted for 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 Patient is undergoing chemoradiation. 1. Dysphagia most probably secondary to esophageal plaque suspicious for candidiasis with history of adenocarcinoma of distal esophagus/GE junction: EGD done found diffuse about 4 cm length, circumferential white layer, easily dissected/removed in lower third of esophagus biopsy was taken. GE junction widely patent and 10 [place] CorPak was placed. Earlier barium esophagram was done and shows irregular circumferential narrowing of distal esophagus and GE junction. 5: Patient tolerated 50 mL/h to feed now on bolus tube feed as per medical refrigerator mover recommendation. 2. Mild hypokalemia and hypomagnesemia: Potassium is replaced. Magnesium 1.6 replaced. 3. GERD - ppi IV 4. Depression/anxiety- zoloft, melatonin, ativan, vistaril 5. Hx DMt2 - no medication given inability to eat for some time glucose is controlled 6. Pancytopenia secondary to esophageal cancer, distal adenocarcinoma, undergoing chemoradiation: Patient platelet count is stable about 50,000. WBC count 12.3 thousand. H&H 12/16. 7 Severe acute malnutrition: Seen by refrigerator mover. Total calories at 1800 calorie. 112 g protein. Patient weight was 188 pounds on on 07/10/19 which decreased to 168 pounds on 08/19 which is 10.1% wt loss x 6 weeks, less than 50% estimated p.o. intake for more than 5 days consistent with acute severe malnutrition secondary to dysphagia status post chemotherapy and radiation therapy. DVT ppx: lovenox Microbiology Past 72 Hours 08/21/19 07:20 Stool C. difficile DNA Amplification - Final Laboratory Results 08/23/19 05:30: WBC 2.3 L, RBC 2.75 L, Hgb 8.6 L, Hct 25.7 L, MCV 93.5, MCH 31.3, MCHC 33.5, RDW Std Deviation 40.8, RDW Coeff of [place] 12.7, Plt Count 50 L*, MPV 9.9, Immature Gran % (Auto) 1.300 H, Neut % (Auto) 73.0 H, Lymph % (Auto) 7.6 L, [place] % (Auto) 17.3 H, Eos % (Auto) 0.4, Baso % (Auto) 0.4, Absolute Neuts (auto) 1.6 L, Absolute Lymphs (auto) 0.17 L, Nucleated RBC % 0, Differential Comment COMMENT, Diff Path Review May juan a, Platelet Estimate MOD 08/24/19 05:52: Sodium 146 H, Potassium 4.1, Chloride 115 H, Carbon Dioxide 26.0, Anion Gap 5, BUN 11, Creatinine 0.69, Estim Creat Clear Calc 70.19, Est GFR (MDRD) Af Amer 110, Est GFR (MDRD) Non-Af 91, BUN/Creatinine Ratio 16.0, Glucose 103, Calcium 8.3 L, Magnesium 1.8 08/24/19 05:52: WBC 2.3 L, RBC 2.95 L, Hgb 9.0 L, Hct 27.8 L, MCV 94.2, MCH 30.5, MCHC 32.4, RDW Std Deviation 42.0, RDW Coeff of [place] 13.0, Plt Count 49 L*, MPV 10.1, Immature Gran % (Auto) 1.300 H, Neut % (Auto) 75.1 H, Lymph % (Auto) 8.6 L, [place] % (Auto) 14.2 H, Eos % (Auto) 0.4, Baso % (Auto) 0.4, Absolute Neuts (auto) 1.8 L, Absolute Lymphs (auto) 0.20 L, Nucleated RBC % 0, Differential Comment SCANNED, Diff Path Review July08/24/19 05:52: Phosphorus 2.8 Inpatient E&M: [id number] Subs Hosp L2
[2019-08-24 09:23] VITALS: BP 137/78; PULSE 72; RESP 18; TEMP 36.5; O2SAT 97
[2019-08-24] MEDS: NYSTATIN 500,000 UNIT/5 ML UDC 500000 UNIT PO (09:30)
[2019-08-24] MEDS: Pivot 1.5 Cal 1,000 ML BOTTLE 237 ML GT (09:33)
--- NOTE | 2019-08-24 10:11 | CASEMGMT ---
ANTONIO LYNCH received call back from [facility] that tube feed and supplies will not be available to patient till Tuesday. ANTONIO LYNCH updated petroleum geologist. Medical Esthetician spoke to pharmacy regarding supply for patient at home to cover the weekend. Tube feed Pivot 1.5 available for purchase. ANTONIO LYNCH spoke to retail pharmacy regarding cost, $11.68 per bottle. Patient will need 4 bottle for the weekend per petroleum geologist. Script received from hospitalist and forwarded to retail pharmacy. ANTONIO LYNCH call [facility] and updated regarding discharge today and coordination of care. Patient to receive radiology treatment at 12:15 after patient is discharge. ANTONIO LYNCH updated nurse Aubrie at [facility], regarding discharge and radiology appt. Aubrie to call patient and coordinate time. ANTONIO LYNCH updated the patient regarding tube feed through pharmacy and then delivery from [facility], as well as [facility]. Patient had no further questions or concerns. CM will continue to follow this patient and plan for a safe discharge.
--- NOTE | 2019-08-24 10:19 | DCINST_ITS ---
- Discharge Diagnoses Current Active Problems: Current Active and Chronic Problems (Last Updated 07/10/19 @ 13:05 by Coleen Adair RN) Esophageal cancer (Acute) Vomiting (Acute) Decreased oral intake (Acute) You will use the following diet at home:: Regular, Other - tube feed Your food should be the consistency of: Regular Discharge Activity: May Not Drive Additional Instructions: Patient is advised not to take Atarax and sertraline while she is taking Diflucan to avoid QTC prolongation. Follow-up surgeon for esophageal adenocarcinoma. Allergies/Adverse Reactions: Allergies codeine Allergy (Verified 08/20/19 12:24) Shortness of breath levofloxacin [From Levaquin] Allergy (Verified 08/20/19 12:24) Rash Medications to take at Discharge Multivit with Calcium,Iron,Min [Multiple Vitamins For Women] 1 ea PO DAILY 04/22/14 pantoprazole 40 mg tablet,delayed release 40 tablet PO DAILY 05/01/19 simvastatin 40 mg tablet 40 mg PO DAILY 05/01/19 Clonazepam [Clonazepam Tab.Rapdis] 0.25 mg PO BID PRN 07/10/19 HydrOXYzine [Atarax] 25 mg PO DAILY 07/10/19 Magic Mouth Wash 10 ml PO Q6H PRN PRN #300 ml 08/06/19 Morphine Sulfate 10 mg PO TID PRN 08/15/19 Aspirin [Aspirin, Baby] 81 mg PO DAILY@0800 #0 08/23/19 Bmx Liquid 10 ml PO Q6H PRN #180 ml 08/23/19 Nystatin 500,000 unit PO 4X/DAY 7 Days #1 bottle 08/23/19 Fluconazole [Diflucan] 200 mg PO DAILY #7 tab 08/24/19 Pivot 1.5 Julio 237 ml GT 5X/DAY bottle 08/24/19 Sertraline HCl [Zoloft] 100 mg PO DAILY #0 08/24/19 The following prescriptions were given: Bmx Liquid 10 ml PO Q6H PRN #180 ml PRN Reason: Pain Score 1-12/28 Transmission Status: Received by [id number] Nystatin 500,000 unit PO 4X/DAY 7 Days #1 bottle Transmission Status: Received by [id number] Primary Care Physician: Sharmaine Alonso NP-C [Primary Care Provider] - Please follow up with your Primary Care Physician in: in 1-2 weeks Test Results: Test results from this visit will be discussed in further detail at your follow- up appointment, if applicable. Please Follow Up With: Brett Brito MD When: in 4 weeks as needed for tube feeding issues Please Follow Up With: Torrey Morris DO When: for Radiotherapy
--- NOTE | 2019-08-24 14:02 | DS.PCM_ITS ---
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 Patient last chemotherapy was on 08/15/2019. 1. Dysphagia most probably secondary to esophageal plaque suspicious for candidiasis with history of adenocarcinoma of distal esophagus/GE junction: EGD done found diffuse about 4 cm length, circumferential white layer, easily dissected/removed in lower third of esophagus biopsy was taken. GE junction widely patent and 10 [place]ic CorPak was placed. Earlier barium esophagram was done and shows irregular circumferential narrowing of distal esophagus and GE junction. EGD was suspicious of fungus/Kailey but biopsy came negative for Kailey or other fungus as per surgeon Dr. Brtio therefore Diflucan discontinued. Patient on tube feed bolus as per dietitian. 2. Mild hypokalemia and hypomagnesemia: Potassium is replaced. Magnesium 1.6 replaced. 3. GERD - ppi IV 4. Depression/anxiety- zoloft, melatonin, ativan, vistaril 5. Hx DMt2 - no medication given inability to eat for some time glucose is controlled 6. Pancytopenia secondary to esophageal cancer, distal adenocarcinoma, undergoing chemoradiation: Patient platelet count is stable about 50,000. WBC count 12.3 thousand. H&H 12/16. 7 Severe acute malnutrition: Seen by sap sd analyst. Total calories at 1800 calorie. 112 g protein. Patient weight was 188 pounds on on 07/10/19 which decreased to 168 pounds on 08/19 which is 10.1% wt loss x 6 weeks, less than 50% estimated p.o. intake for more than 5 days consistent with acute severe malnutrition secondary to dysphagia status post chemotherapy and radiation therapy. DVT ppx: lovenox Discharge medication reconciliation done. Discharge follow-up instructions completed. Discharge process discussed with the patient and all questions were answered to patient's satisfaction. Total time spent, exact 35 minutes on discharge meds reconciliation, examination, coordination of care with nurses and ancillary staff, review of imaging and blood test and discussion with the patient on follow-up instructions Objective: Please see progress note of the same date. - Physical Exam Vitals/I&O's: Vital Signs Temp Pulse Resp BP Pulse Ox 97.7 F L 72 18 137/78 H 97 08/24/19 09:23 08/24/19 09:23 08/24/19 09:23 08/24/19 09:23 08/24/19 09:23 Oxygen Delivery Method Room Air Weight: 175 lb 7.807 oz Body Mass Index (BMI) 30.1 Finger Stick Blood Glucose 114 Intake and Output for Last 24 Hours 08/22/19 08/23/19 08/24/19 23:59 23:59 23:59 Intake Total 2770 / 2770 2390 / 2390 688 / 688 Output Total 800 / 800 Balance 1969 / 1969 2390 / 2390 688 / 688 Microbiology Past 72 Hours 08/21/19 07:20 Stool C. difficile DNA Amplification - Final Laboratory Results 08/23/19 05:30: WBC 2.3 L, RBC 2.75 L, Hgb 8.6 L, Hct 25.7 L, MCV 93.5, MCH 31.3, MCHC 33.5, RDW Std Deviation 40.8, RDW Coeff of Ely 12.7, Plt Count 50 L*, MPV 9.9, Immature Gran % (Auto) 1.300 H, Neut % (Auto) 73.0 H, Lymph % (Auto) 7.6 L, Todd % (Auto) 17.3 H, Eos % (Auto) 0.4, Baso % (Auto) 0.4, Absolute Neuts (auto) 1.6 L, Absolute Lymphs (auto) 0.17 L, Nucleated RBC % 0, Differential Comment COMMENT, Diff Path Review May foll, Platelet Estimate MOD 08/24/19 05:52: Sodium 146 H, Potassium 4.1, Chloride 115 H, Carbon Dioxide 26.0, Anion Gap 5, BUN 11, Creatinine 0.69, Estim Creat Clear Calc 70.19, Est GF R (MDRD) Af Amer 110, Est GFR (MDRD) Non-Af 91, BUN/Creatinine Ratio 16.0, Glucose 103, Calcium 8.3 L, Magnesium 1.8 08/24/19 05:52: WBC 2.3 L, RBC 2.95 L, Hgb 9.0 L, Hct 27.8 L, MCV 94.2, MCH 30.5, MCHC 32.4, RDW Std Deviation 42.0, RDW Coeff of Ely 13.0, Plt Count 49 L*, MPV 10.1, Immature Gran % (Auto) 1.300 H, Neut % (Auto) 75.1 H, Lymph % (Auto) 8.6 L, Todd % (Auto) 14.2 H, Eos % (Auto) 0.4, Baso % (Auto) 0.4, Absolute Neuts (auto) 1.8 L, Absolute Lymphs (auto) 0.20 L, Nucleated RBC % 0, Differential Comment SCANNED, Diff Path Review July08/24/19 05:52: Phosphorus 2.8 Current Medications Atorvastatin Calcium (Lipitor) 20 mg PO QHS [facility] Last Admin: 08/23/19 21:01 Dose: Not Given Documented by: Hydroxyzine Pamoate (Vistaril Pamoate Capsule) 25 mg PO HS [facility] Pantoprazole Sodium 40 mg/ (Sodium Chloride) 110 mls @ 330 mls/hr IV Q24 [facility] Last Infusion: 08/24/19 09:52 Dose: Infused Documented by: Sodium Chloride () 250 mls @ 15 mls/hr IV .[id number] PRN PRN Reason: Saline Flush Lactose (Pivot 1.5 Julio) 237 ml GT 5X/DAY [facility] Last Admin: 08/24/19 09:33 Dose: 237 ml Documented by: Lidocaine/Diphenhydr/Alum/Mg/Simeth () 10 ml PO Q6H PRN PRN Reason: Pain Score 1-10/10 Last Admin: 08/22/19 21:01 Dose: 10 ml Documented by: Lorazepam (Ativan) 0.5 mg IV Q6H PRN PRN PRN Reason: ANXIETY Last Admin: 08/22/19 21:01 Dose: 0.5 mg Documented by: Melatonin (Melatonin) 3 mg PO QHS PRN PRN PRN Reason: INSOMNIA Morphine Sulfate () 4 mg IV Q3H PRN PRN PRN Reason: Pain Score 6-10/10 Last Admin: 08/22/19 06:55 Dose: 4 mg Documented by: Morphine Sulfate (Roxanol (Ir Oral Solution)) 10 mg PO TID PRN PRN Reason: Pain Score 1-10/10 Nystatin (Nystatin) 500,000 unit PO 4X/DAY DALE Last Admin: 08/24/19 09:30 Dose: 500,000 unit Documented by: Ondansetron HCl (Zofran) 8 mg IV Q6H PRN PRN PRN Reason: NAUSEA/VOMITING Last Admin: 08/22/19 06:56 Dose: 8 mg Documented by: Sertraline HCl (Zoloft) 100 mg PO HS DALE Sodium Chloride () 10 - 40 ml IV UD PRN PRN Reason: SALINE FLUSH Last Admin: 08/22/19 07:09 Dose: 10 ml Documented by: Discharge Activity: May Not Drive Home Medications: Medications to take at Discharge Multivit with Calcium,Iron,Min [Multiple Vitamins For Women] 1 ea PO DAILY 04/22/14 pantoprazole 40 mg tablet,delayed release 40 tablet PO DAILY 05/01/19 simvastatin 40 mg tablet 40 mg PO DAILY 05/01/19 Clonazepam [Clonazepam Tab.Rapdis] 0.25 mg PO BID PRN 07/10/19 HydrOXYzine [Atarax] 25 mg PO DAILY 07/10/19 Magic Mouth Wash 10 ml PO Q6H PRN PRN #300 ml 08/06/19 Morphine Sulfate 10 mg PO TID PRN 08/15/19 Aspirin [Aspirin, Baby] 81 mg PO DAILY@0800 #0 08/23/19 Bmx Liquid 10 ml PO Q6H PRN #180 ml 08/23/19 Nystatin 500,000 unit PO 4X/DAY 7 Days #1 bottle 08/23/19 Pivot 1.5 Julio 237 ml GT 5X/DAY bottle 08/24/19 Sertraline HCl [Zoloft] 100 mg PO DAILY #0 08/24/19 Following Prescrptions Were Given to Patient: Bmx Liquid 10 ml PO Q6H PRN #180 ml PRN Reason: Pain Score 1-1010 Transmission Status: Received by [id number] Nystatin 500,000 unit PO 4X/DAY 7 Days #1 bottle Transmission Status: Received by [id number] Primary Care Physician: Sharmaine Alonso NP-C [Primary Care Provider] - Please follow up with your Primary Care Physician in: in 1-2 weeks Please Follow Up With: Brett Brito MD When: in 4 weeks as needed for tube feeding issues Please Follow Up With: Torrey Morris DO When: for Radiotherapy Medical Necessity - Tobacco Use Smoking Status: Never smoker Meaningful Use Info Meaningful Use Diagnoses (Choose all that apply): None applicable Please cancel the billing charge of progress note of same date today Inpatient E&M: [id number] Disch Hosp
[2019-08-27 12:04] LABS: Pathologist Review Reviewed
[2019-08-27 12:13] LABS: Pathologist Review Reviewed
--- NOTE | 2019-08-27 15:01 | CASEMGMT ---
ANTONIO LYNCH DC PHONE CALL DC DATE: 08/24/2019 DC DISPOSITION: Home with [facility] DC DIAGNOSIS: Esophageal cancer, new TF start up LACE/STRATA: 12 F/U APPTS MADE PRIOR TO DC: PRESCRIPTIONS ACQUIRED BY PT: yes ANTONIO LYNCH spoke with nurse from [facility]. Start of care was Tuesday, and pt is also being seen today. Per nurse pt is doing well with tube feeds and medications and they will continue to follow her. Manolo STILESN RN ACM
== END 2019-08-24 12:05 | disposition home or self-care (01) | DRG 374 ==
LOC: ED 14:14 → MS3 15:58
PROVIDERS: Physician Assistant; Student in an Organized Health Care Education/Training Program; Surgery; Admitting Provider Family Medicine; Emergency Provider Emergency Medicine; PCP Nurse Practitioner Family; Visit Provider Internal Medicine
PROC: 0DJ08ZZ Inspection of Upper Intestinal Tract, Via Natural or Artificial Opening Endoscopic (ICD-10-PCS; CPT 43235; principal; 2019-08-22 10:10)
DX: C15.5 Malignant neoplasm of lower third of esophagus (principal); E43 Unspecified severe protein-calorie malnutrition; D61.810 Antineoplastic chemotherapy induced pancytopenia; K22.9 Disease of esophagus, unspecified; R13.10 Dysphagia, unspecified; R63.8 Other symptoms and signs concerning food and fluid intake; E87.6 Hypokalemia; E83.42 Hypomagnesemia; K21.9 Gastro-esophageal reflux disease without esophagitis; E11.9 Type 2 diabetes mellitus without complications; F32.9 Major depressive disorder, single episode, unspecified; F41.9 Anxiety disorder, unspecified; I10 Essential (primary) hypertension; E78.5 Hyperlipidemia, unspecified; Z68.28 Body mass index [BMI] 28.0-28.9, adult; Z79.899 Other long term (current) drug therapy
CPT/HCPCS: 36415; 71045; 74018; 74246; 77386; 80048; 80053; 83690; 83735; 84100; 85025; 87493; 87635; 88305; 88312; 93005; 94799; 96367; 96375; 97802; 97803; 99283; J7030; A4216; J2405; U0003

== ENCOUNTER → 2019-09-13 13:36 | Outpatient (CLI) | payer MEDICARE, OTHER, SELFPAY ==
[2019-07-10 13:02] VITALS: BMI 32.3
[2019-09-13 11:03] VITALS: BMI 28.3
--- NOTE | 2019-09-13 13:40 | RAD_ITS ---
STUDY: X-RAY CHEST REASON FOR EXAM: Female, 64 years old. CHECK FEEDING TUBE PLACEMENT- PT IS VOMITING WHEN BEING FED AND HAVING IRRITATION FROM TUBE TECHNIQUE: Single AP portable view of the chest. COMPARISON: 09/05/2019 FINDINGS: Previously noted feeding tube now sits in the distal stomach. No complications The lungs are clear and expanded. There is no demonstrated pleural abnormality. Normal size heart. Normal mediastinum and valerie. Normal visualized pulmonary arteries. Normal visualized aortic arch and descending thoracic aorta. Normal visualized thoracic spine. Normal visualized ribs, clavicles, and shoulders. There is no demonstrated abnormality of the visualized soft tissue structures of the upper abdomen. RAD/Chest 1 View IMPRESSION: No acute pulmonary process Feeding tube tip in the distal stomach Electronically Signed: Kleber Kramer MD at 13:57 EDT , Service support ,
== END ==
PROVIDERS: PCP Nurse Practitioner Family; Referring Provider Surgery; Visit Provider Surgery
DX: Z46.82 Encounter for fitting and adjustment of non-vascular catheter (principal); C15.5 Malignant neoplasm of lower third of esophagus
CPT/HCPCS: 71045; 96360; 96361; J7030; A4216

== ENCOUNTER 2019-09-19 15:21 | Emergency (ER) | payer MEDICARE, OTHER, SELFPAY ==
[2019-07-10 13:02] VITALS: BMI 32.3
[2019-09-13 11:03] VITALS: BMI 28.3
[2019-09-19 15:22] VITALS: BP 128/76; PULSE 90; RESP 17; TEMP 36.8; O2SAT 97; BMI 28.1
[2019-09-19 16:47] LABS: Red Blood Cells-Urine 0 SEEN /hpf (0-5)
[2019-09-19 16:50] LABS: Hematocrit 37.9 % (37-47); Hemoglobin 12.2 g/dL (12.0-15.0); Mean Corp Hgb Conc 32.2 g/dL (32-36); Mean Corpuscular Hgb 30.8 pg (27.0-32.0); Mean Corpuscular Volume 95.7 fL (81-99); Mean Platelet Vol. 10.3 fl (6.2-12.0); POSITIVE COUNT YES; POSITIVE MORPHOLOGY YES; Platelet Count 242 K/mm3 (150-450); RBC Distribution Width CV 16.4 % (11.6-14.6); RBC Distribution Width SD 56.6 fl (35.1-43.9); Red Blood Count 3.96 M/mm3 (4.2-5.4)
[2019-09-19 16:50] LABS: Color, Urine Yellow (Yellow); Glucose, Dipstick Normal (Normal); Leukocyte Esterase-Dipstick 100 /ul (Negative); Nitrite-Dipstick Negative (Negative); Occult Blood-Urine Negative /ul (Negative); Protein-Dipstick 30 mg/dl (Negative); Specific Gravity, Urine 1.025 (1.002-1.030); Urine Clarity Sl. Cloudy (Clear); Urine Urobilinogen 4 mg/dl (Normal)
[2019-09-19 16:59] LABS: Urine Bilirubin Dipstick 1 mg/dL (Negative)
[2019-09-19 17:00] LABS: Ketone-Dipstick 150 mg/dl (Negative)
[2019-09-19 17:02] LABS: Bacteria RARE /hpf (None Seen); Mucous, Urine 1+ /hpf (<or=2+); Squamous Epithelial Cells - UA 0-5 SEEN /hpf (5-10); White Blood Cells 5-10 SEEN /hpf (0-5)
--- NOTE | 2019-09-19 17:07 | RAD_ITS ---
STUDY: X-RAY CHEST REASON FOR EXAM: Female, 64 years old. WEAKNESS, FATIGUE, NAUSEA, LAST CHEMO/RADIATION TX 2 WEEKS AGO TECHNIQUE: Single frontal view of the chest. COMPARISON: 09/13/2019 FINDINGS: The lungs are clear and expanded. There is no demonstrated pleural abnormality. Normal size heart. Normal mediastinum and valerie. Normal visualized pulmonary arteries. Normal visualized aortic arch and descending thoracic aorta. Normal visualized thoracic spine. Normal visualized ribs, clavicles, and shoulders. There is no demonstrated abnormality of the visualized soft tissue structures of the upper abdomen. RAD/Chest 1 View (Portable) IMPRESSION: Normal x-ray examination of the chest. Electronically Signed: Gelacio Celestin MD at 17:22 EDT Tel , Service support ,
[2019-09-19 17:11] VITALS: BP 118/88; PULSE 80; RESP 15; O2SAT 99
--- NOTE | 2019-09-19 17:14 | ED.VIS.GEN ---
History of Present Illness Chief Complaint: Weakness Informant: Patient Onset: Month(s) Maximum Severity: Mild Narrative: History of esophageal cancer diagnosed spring 2019, she has had poor p.o. intake, she recently completed chemo and radiation therapy she is scheduled for PET scan in a few weeks she has been staged for surgery which she believes she might have in a month or 2. Because she is had poor p.o. intake she was asked to come to the emergency room for evaluation she is able to eat thick ice chip type foods normal and bladder habits unremarkable no fever cough no coronavirus exposures last chemo radiation was 2 weeks ago Constantly spits up mucus that is not uncommon for her, she has had prior feeding tubes to help with her nutrition and hydration she does not wish to have a feeding tube Past Medical History - Allergies and Home Meds Allergies/Adverse Reactions: Allergies codeine Allergy (Verified 09/19/19 15:22) Shortness of breath levofloxacin [From Levaquin] Allergy (Verified 09/19/19 15:22) Rash Primary Care Physician: Sharmaine Alonso NP-C [Primary Care Provider] - Past Medical History: - Smoking Status: Former smoker - Family History Maternal Family History: Reports: Cancer, Heart Disease Paternal Family History: Reports: Heart Disease Review of Systems ROS: - For general cancer hypertension General: Reports: - - Generalized weakness and constantly spitting up saliva that is chronic. Denies: Chills, Fever, Sweats Eyes: Denies: Visual changes - bilaterally, Diplopia ENT: Denies: Rhinorrhea, Sore throat Cardiovascular: Denies: Chest pain, Palpitations Respiratory: Denies: Dyspnea, Cough, Dyspnea on exertion Gastrointestinal: Denies: Abdominal pain, Nausea, Vomiting, Diarrhea, Melena, Hematochezia Genitourinary: Denies: Dysuria, Hematuria, Frequency Musculoskeletal: Denies: Back pain, Extremity Pain Skin: Denies: Rash, Wounds Neurological: Denies: Headache, Weakness, Numbness Physical Exam Vital Signs/Narrative: Vital Signs Temp Pulse Resp BP Pulse Ox 09/19/19 15:22 98.3 F 90 17 128/76 H 97 General: Well nourished, Well developed, No Acute Distress Head: Normocephalic, Atraumatic Eyes: Perrl, EOMI ENT: Moist mucous membranes, No rhinorrhea Neck: Supple, Nontender Cardiovascular: Regular rate, Regular rhythm, No murmurs Respiratory: No distress, CTA bilaterally, Chest nontender Abdomen: Soft, Nontender, Nondistended, Normal bowel sounds Back: Nontender, Normal Inspection Extremities: Nontender, No edema Skin: Normal color, No rash Neurological: Alert, Oriented x3, Cranial nerves II-XII grossly intact, Normal Strength, Normal Sensation Psychological: Normal affect, Normal Mood Diagnostic/Tx/Re-eval - Medical Decision Making Vital signs are unremarkable she is resting company in the bed she is spitting up clear mucus she assures me she basically feels at her baseline except just feels generalized fatigue she is had no exposures to coronavirus no fever no cough no chest or abdominal pain last therapy of chemo radiation was 2 weeks ago Given all the above screening labs IV fluids Patient's ED screening evaluation is generally unremarkable except her UA shows signs of UTI urine culture sent she was given IV Rocephin on reevaluation she we discussed inpatient versus outpatient management she does not wish to be admitted she is comfortable discharge home on a liquid antibiotics she will follow-up with her outpatient providers and return for change in symptoms she understands to have her outpatient providers check her urine culture Home stable Final impression generalized fatigue, esophageal cancer, intermittent vomiting, urinary tract infection ED Disposition - Plan for ED Patient: Diagnosis: Weakness , UTI Instructions: ED Weakness [facility]O Prescriptions: Cephalexin Suspension [Keflex Suspension] 500 mg PO Q8 #10 ml Prescription Printed Referrals: Sharmaine Alonso NP-C [Primary Care Provider] -
[2019-09-19 17:16] LABS: Differential Indicated MANUAL DIFF
[2019-09-19] MEDS: 0.9% Normal Saline 1,000 ML 999 ML IV (17:23)
[2019-09-19 17:24] LABS: Anion Gap 9 (5-15); BUN 18 mg/dL (7-18); BUN/Creat Ratio 18.8 RATIO (10-20); Calcium,Total 9.3 mg/dL (8.5-10.1); Chloride 104 mmol/L (98-107); Creatinine, Serum 0.96 mg/dL (0.55-1.02); EST Glomerular Filtration Rate 62 mL/min (>60); Est Glom Filt Rate - Afr Amer 75 mL/min (>60); Estimated Creatinine Clearance 49.78 ml/min; Glucose 93 mg/dL (74-106); Potassium 3.1 mmol/L (3.5-5.1); Sodium Level 137 mmol/L (136-145)
[2019-09-19 17:48] LABS: Anisocytosis 1+; Lymphocyte 16 % (19-41); Monocyte 6 % (0-10); Neutrophil-Band 3 % (0-5); Neutrophil-Segmented 75 % (47-70); Platelet Estimate ADEQUATE (ADEQ); Red Cell Morphology N CHROM NORMAL (NORM C&C); Total Cells Counted 100 (MANUAL DIFF)
[2019-09-19 17:50] LABS: Absolute Lymphocyte Count 1.28 X10^3/uL (0.83-4.51); Absolute Neutrophil Count 6.2 X10^3/uL (2.0-7.7)
[2019-09-19] MEDS: Ceftriaxone 1 GM/50 ML BAG IV (18:48)
[2019-09-19 20:24] VITALS: BP 116/74; PULSE 71; RESP 15; O2SAT 99
[2019-09-20 12:36] LABS: Pathologist Review Reviewed
== END 2019-09-19 20:27 | disposition home or self-care (01) ==
LOC: ED 17:32
PROVIDERS: Emergency Provider Emergency Medicine; PCP Nurse Practitioner Family
DX: R53.1 Weakness (principal); R53.83 Other fatigue; N39.0 Urinary tract infection, site not specified; C15.9 Malignant neoplasm of esophagus, unspecified; Z87.891 Personal history of nicotine dependence
CPT/HCPCS: 71045; 80048; 81001; 84484; 85025; 87086; 87088; 96361; 96365; 99284; J7030; A4216

== ENCOUNTER 2024-01-30 14:35 | Emergency (ER) | payer MEDICARE, OTHER, SELFPAY ==
[2020-06-03 10:02] VITALS: BMI 26.9
[2024-01-30] VITALS (7 sets, daily range): BP systolic 94–151; BP diastolic 55–104; PULSE 69–91; RESP 15–91; TEMP 36.7–36.8; O2SAT 18–99; BMI 32.9
[2024-01-30] MEDS: Ondansetron 4 MG/2 ML Vial IV (15:09)
[2024-01-30] MEDS: Propofol 200 MG/20 ML Vial IV BOLUS (16:36)
[2024-01-30] MEDS: HYDROmorphone 0.5 MG/0.5 ML SYRINGE 0.25 MG IV (17:17)
== END 2024-01-30 18:32 | disposition home or self-care (01) ==
PROVIDERS: Emergency Provider Emergency Medicine; PCP Nurse Practitioner Family; Visit Provider Emergency Medicine
DX: S82.851A Displaced trimalleolar fracture of right lower leg, initial encounter for closed fracture (principal); W01.0XXA Fall on same level from slipping, tripping and stumbling without subsequent striking against object, initial encounter; I10 Essential (primary) hypertension; Z79.82 Long term (current) use of aspirin; Z79.899 Other long term (current) drug therapy; Z87.891 Personal history of nicotine dependence
CPT/HCPCS: 27810; 73610; 96374; 96375; 99152; 99285; J7040; J2405

== ENCOUNTER 2024-02-13 06:03 | Day surgery (SDC) | payer MEDICARE, OTHER, SELFPAY ==
[2020-06-03 10:02] VITALS: BMI 26.9
[2024-02-13] VITALS (12 sets, daily range): BP systolic 79–149; BP diastolic 47–84; PULSE 59–80; RESP 16–18; TEMP 35.7–37.2; O2SAT 94–100; BMI 29.2
[2024-02-13] MEDS: Lactated Ringers 1,000 ML 15 ML IV (06:48)
[2024-02-13 06:54] LABS: Bedside Glucose 121 mg/dL (74-106)
--- NOTE | 2024-02-13 07:11 | PCM.PRE.AN2 ---
ASA Classification* ASA Classification ASA Classification: 2 Assessment & Plan Anesthesia* Anesthesia Assessment Anesthesia Assessment: Discussed sedation and/or anesthesia options, risks, benefits, and alternatives with patient/parents/legal guardian/POA. Questions invited. The patient/parents/legal guardian/POA seems to understand and agrees to proceed with anesthesia plan. Reviewed the physical assessment, medical history, allergy history and patient home medications list prior to surgery/procedure/anesthetic and documented any changes. Performed airway and anesthesia risk assessments. Anesthesia Type Anesthesia Type: Spinal and Block Anesthesia Focused Assessment* Temperature: 98.4 F Pulse Rate: 79 Blood Pressure: 109/84 Respiratory Rate: 18 Pulse Ox: 98 Airway Assessment Mouth opens: >3 cm Mallampati Score: II Focused Labs Anesthesia Preop lab: CBC WBC 8.0 K/mm3 (4.4-11.0) 09/19/19 16:20 RBC 3.96 M/mm3 (4.2-5.4) L 09/19/19 16:20 Hgb 12.2 g/dL (12.0-15.0) 09/19/19 16:20 Hct 37.9 % (37-47) 09/19/19 16:20 Plt Count 242 K/mm3 (150-450) 09/19/19 16:20 CHEMISTRY Potassium 3.1 mmol/L (3.5-5.1) L 09/19/19 16:20 Sodium 137 mmol/L (136-145) 09/19/19 16:20 Magnesium 1.8 mg/dL (1.6-2.6) 08/24/19 05:52 Phosphorus 2.8 mg/dL (2.5-4.9) 08/24/19 05:52 BUN 18 mg/dL (7-18) 09/19/19 16:20 Creatinine 0.96 mg/dL (0.55-1.02) 09/19/19 16:20 Glucose 93 mg/dL (74-106) 09/19/19 16:20 POC Glucose 121 mg/dL (74-106) H 02/13/24 06:26 COAG Pre-Assessment Diagnosis/Proposed Procedure Planned Operative Procedure(s): (R) Open reduction and internal fixation of the right ankle fracture. 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 When Was Last Pacemaker Check QUESTION #4 FULL TEXT: You/Your Family Experience fever (hyperthermia) with Anesthesia Last Oral Intake Last Oral intake: Last Oral Intake NPO since 20:30 02/13/24 06:39 Meds taken in AM with sips of No 02/13/24 06:39 water? Meds patient instructed to take am of surgery PONV PONV - title insurance sales representative: PONV - title insurance sales representative Female Yes 02/08/24 13:22 HX of Motion Sickness No 02/08/24 13:22 HX of N/V After Surgery No 02/08/24 13:22 Non-Smoker Yes 02/08/24 13:22 Duration of Surgery greater Yes 02/08/24 13:22 than 60 minutes Number of Risk Factors 3 02/08/24 13:22 PONV Score Moderate Risk 02/08/24 13:22 Height & Weight Height & Weight: Anesthesia: Height & Weight Height 5 ft 3 in 02/13/24 06:39 Weight: 74.843 kg 02/13/24 06:39 Body Mass Index (BMI) 29.2 02/13/24 06:39 Respiratory Assessment Respiratory Assessment - title insurance sales representative: Respiratory Tract Infection Hx - title insurance sales representative Hx Respiratory Tract Infection No 02/08/24 13:22 STOP Sleep Apnea STOP Sleep Apnea - title insurance sales representative: STOP Sleep Apnea - title insurance sales representative Hx Hypertension Yes: CONTROLLED WITH MED 02/08/24 13:22 Hx Sleep Apnea No 02/08/24 13:22 CPAP No 08/20/19 16:02 BIPAP No 08/20/19 16:02 Do you snore loudly (louder No 02/08/24 13:22 than talking or can be heard Do you often feel tired/ No 02/08/24 13:22 fatigued/ sleepy during daytime? Has anyone observed you stop No 02/08/24 13:22 breathing during sleep? STOP Results Negative 02/08/24 13:22 QUESTION #5 FULL TEXT : Do you snore loudly (louder than talking or can be heard through closed doors)? Tobacco Use History Tobacco Use History - title insurance sales representative: Tobacco Use History - title insurance sales representative Tobacco Use Smoking Status Former smoker 02/08/24 13:22 Hx Tobacco Use No 02/08/24 13:22 Years Smoking Packs Smoked per Day Smoking Cessation Date was Yes - quit smoking within 15 02/08/24 13:22 within the last 15 years years Hx Smoking Cessation Date 03/21/17 02/08/24 13:22 Hx Smoking Cessation Counseling Hematologic Medial History Hematologic Hx - title insurance sales representative: Hematologic Medical Hx - clinical documentation spec Hx of Blood Transfusion No 02/08/24 13:22 Hx of Transfusion in last 3 No 02/08/24 13:22 Months Date of Last Transfusion (if within last 3 months) Ever experience any problems No 02/08/24 13:22 with transfusion(s)? Specify any problems Hx of Preganancy in last 3 N/A 02/08/24 13:22 Months Nurse Filling Out Transfusion NBUCHER 02/08/24 13:22 & Questions: Date: 02/08/24 02/08/24 13:22 Time: 13:24 02/08/24 13:22 Patient unable to answer at this time (ie. confused, unrespo /Reproduction History /Reproductive History - title insurance sales representative: /Reproductive Hx- title insurance sales representative Hx Now Gestational Age (in weeks): EDC: Hx Hx Para Hx Section SAB Active Medications Active Medications: Current Medications Generic Name Dose Route Start Last Admin Trade Name Freq PRN Reason Stop Dose Admin Cefazolin Sodium 2 gm/ N/A 20 mls @ 400 mls/hr 02/13/24 07:30 IV 02/13/24 07:32 PREOP ONE Lactated Ringer's 1,000 mls @ 15 mls/hr 02/13/24 06:15 02/13/24 06:48 IV 02/18/24 19:34 15 mls/hr .Q48H DALE Administration Protocol PFSH Medical History Wears hearing aid Loss of hearing Wears glasses Wears partial dentures Cancer Anxiety Arthritis High cholesterol Dietary restriction Former smoker Diabetes Gastric reflux Esophageal cancer Gastric ulcer HTN (hypertension) Home Medications ?Medication ?Instructions ?Recorded ?Last Taken ?Type pantoprazole 40 mg tablet,delayed 40 tab PO QHS gerd 05/01/19 02/12/24 History release aspirin 81 mg chewable tablet 81 mg PO DAILY 09/19/19 02/07/24 History lisinopril 20 mg tablet 10 mg PO DAILY 12/02/20 02/12/24 History hydromorphone 2 mg tablet 2 mg PO Q6H PRN pain 5 days #20 01/30/24 02/09/24 Rx (Dilaudid) tabs multivitamin (Daily Multi-Vitamin 1 tab PO DAILY 02/08/24 02/12/24 History tablet) BERGAMOT 500 mg PO DAILY BLOOD SUGAR, BLOOD 02/13/24 02/12/24 History PRESSURE sertraline 100 mg tablet 100 mg PO QHS anxiety 02/13/24 02/12/24 History Allergy/AdvReac Type Severity Reaction Status Date / Time codeine Allergy Shortness Verified 02/13/24 06:32 of breath levofloxacin (From Levaquin) Allergy Rash Verified 02/13/24 06:32 Surgical History History of esophageal surgery H/O lumpectomy History of esophagogastroduodenoscopy (EGD) Social History Smoking Status: Former smoker Review of Systems (Anesthesia) ROS Narrative System reviewed and no additional complaints, except as documented.
[2024-02-13] MEDS: Cefazolin 2 GM in Syringe IV (07:29)
--- NOTE | 2024-02-13 08:00 | RAD_ITS ---
INDICATION: ORIF RT ANKLE EXAMINATION/TECHNIQUE: X-RAY - RIGHT XR Ankle 2 Views 6 VIEWS COMPARISON: January 30, 2024 FINDINGS: Five intraoperative images were submitted for review. There is a distal fibular diaphyseal fracture with a plate and screw fixation device in place. The alignment is anatomic. There is a transverse medial malleolus or fracture. There is a screw traversing the medial malleolus or fracture. The alignment is anatomic. No suspicious bony lesions are seen. Please refer to the intraoperative report for further discussion. Electronically Signed: Devika Peña MD at 10:40 EST , RAD/Ankle 2 Views IMPRESSION: undefined
--- NOTE | 2024-02-13 11:18 | SUR.PHASEI ---
phenylephrine given by pranav bansal
--- NOTE | 2024-02-13 11:21 | OP.PCM_ITS ---
Problems Associated Problem List Diagnoses (1) Trimalleolar fracture of right ankle: Operative Report (Standard) Operative Information Surgery/Procedure Performed: Open reduction internal fixation right trimalleolar ankle fracture Surgeon: Hemanth Gimenez Date of Procedure: 02/13/24 Procedure Start Time: 07:30 Procedure Stop Time: 10:52 Pre-Operative Diagnosis: Trimalleolar ankle fracture, right ankle Post-Operative Diagnosis: Same Select all DRAINS/GRAFTS/IMPLANTS that apply: Implanted device Implanted device details: Two straight locking plate, 2 cinch fix, 1 medial malleolus screw with washer Type of Anesthesia: Spinal/Supplemental Estimated Blood Loss: Less than Specimen collected: No Description of surgery: Patient suffered ankle fracture walking in the parking lot she slipped. Disl ocated right ankle. Closed reduction performed in ED. For edema management Case was delayed approximately 1 to 2 weeks. Patient has trimalleolar ankle fracture with gross syndesmotic instability. Today plan was for fixation of the distal fibula stabilization of the syndesmosis as well as ORIF of the medial malleolus. Posterior malleolus not fixed due to reduction in no need due to fixation of syndesmosis. Surgical Findings: Patient was brought back the operating placed comfortably in the supine position on the operating table. Patient was given spinal anesthesia preoperatively. Patient was given some supplemental anesthesia under monitored anesthesia care throughout the case. Well-padded right thigh tourniquet was applied to right lower extremity. Right lower extremity was positioned with a hip bump to knock on external rotation. Right lower extremity scrubbed prepped draped using typical aseptic fashion. Right lower extremity elevated exsanguinated tourniquet inflated to 300 mmHg. Using fluoroscopic imaging the fracture line was mapped out as well as the distal tibiofibular syndesmosis and the ankle joint as well as the fibula. A long linear incision directly lateral to the fibula was made through epidermis dermis into subcutaneous tissue. Any bleeders identified cauterized. Blunt dissection was taken down to level of deep fascia and periosteum. Fracture hematoma was noted at the fracture site. Periosteal incision was made and the fibula was exposed the fracture site was curetted out of any interposing bone and hematoma. Left was then flushed. The posterior fracture fragment was preventing reduction and was ultimately removed from the site. Using a push pull technique a long fibular plate straight plate was applied and stabilized distally using locking screws. Reduction was then performed and held with a bone reduction forceps. Additional locking and nonlocking screws were applied proximal to distal to fracture site. Fluoroscopic imaging demonstrated fibular reduction with regards to length and rotation. Due to comminuted fracture site and need for additional stability a second plate was applied anteriorly using orthogonal plate technique using combination of locking and nonlocking screws. Syndesmosis was then stabilized next using 2 cinch fix using manufactures guidelines extending from the lateral fibula to the medial tibia. Medial incision was made to be used for medial malleolus reduction as well as adequate apposition of cinch fix on the medial aspect of the tibia. Next the medial malleolus was pinned in a reduced position. Additional 4 oh partially-threaded screw with washer placed hold medial mall lateral malleolus in a rectus position. Fluoroscopic imaging confirmed roman catholic of anatomic alignment of the ankle mortise with roman catholic of fibular length and the rotation out of external rotation. Reduction of the distal tibiofibular syndesmosis noted as well as the medial malleolus fracture fragment. Tourniquet was let down. Total tourniquet time was 2 hours. Sites were flushed with copious amounts of normal sterile saline. Any bleeders identified and cauterized again. Deep closure performed with simple interrupted buried 2-0 Vicryl. Subcutaneous closure performed with simple interrupted buried 2-0 Vicryl. Skin closure performed with vani. Incisional sites dressed with Betadine Adaptic 4 x 4's ABD pads Kerx. A well-padded AO splint was applied to the right lower extremity with the foot and ankle held in rectus position. Patient transported PACU vital signs stable and vascular status intact all digits for further management prior to discharge. Patient tolerated procedure and anesthesia well apparent satisfactory condition. No complications. Reduction of displaced trimalleolar ankle fracture with syndesmotic instability noted No pathologic specimens taken Elementary Ell Teacher plumbing mechanic: Yes Cell Operation Supervisor: berto hanson Tasks completed by special education assistant: Opening, Closing, Dissecting tissue, Removing tissue, Hemostasis: Clamp, Hemostasis: Tie and Retracting Complications Complications: No
[2024-02-13] MEDS: Ketorolac 30 MG/ML Syringe 15 MG IV (14:15)
[2024-02-13] MEDS: oxyCODONE 5 MG Tablet 10 MG PO (14:21)
--- NOTE | 2024-02-13 14:29 | PCM.POST.ANE ---
Anesthesia: Postop Eval I Current Vital Signs Temperature: 97 F Pulse Rate: 62 Blood Pressure: 99/63 Respiratory Rate: 16 Pulse Ox: 98 Oxygen Delivery Method: Room Air Assessment Airway patent: Yes Spontaneous unlabored respirations: Yes Mental status: Awake and Calm nausea: No Vomiting: No Anesthesia Complication: No Fluid Hydration Crystalloid volume administer (ml): 1,500 Total IV fluid infused: 1,500 Progress Note Anesthesia document: Postop Eval 1 completed: Yes
== END 2024-02-13 15:36 | disposition home or self-care (01) ==
LOC: SDC 06:05 → AC 06:06
PROVIDERS: PCP Nurse Practitioner Family; Referring Provider Podiatrist; Visit Provider Podiatrist
PROC: (CPT 27822; principal; 2024-02-13 07:10)
DX: S82.851A Displaced trimalleolar fracture of right lower leg, initial encounter for closed fracture (principal); C15.5 Malignant neoplasm of lower third of esophagus; E11.22 Type 2 diabetes mellitus with diabetic chronic kidney disease; N18.32 Chronic kidney disease, stage 3b; S93.431A Sprain of tibiofibular ligament of right ankle, initial encounter; W18.40XA Slipping, tripping and stumbling without falling, unspecified, initial encounter; I12.9 Hypertensive chronic kidney disease with stage 1 through stage 4 chronic kidney disease, or unspecified chronic kidney disease; E78.00 Pure hypercholesterolemia, unspecified; F32.A Depression, unspecified; F41.9 Anxiety disorder, unspecified; E66.811 Obesity, class 1; Z68.28 Body mass index [BMI] 28.0-28.9, adult; Z71.82 Exercise counseling; Z79.82 Long term (current) use of aspirin; Z79.899 Other long term (current) drug therapy
CPT/HCPCS: 27822; 01480; 64450; 73600; 76000; 82962; C1713; J7120; J2405

== ENCOUNTER 2025-02-27 08:14 | Emergency (ER) | payer MEDICARE, OTHER, SELFPAY ==
[2020-06-03 10:02] VITALS: BMI 26.9
[2025-02-27 08:15] VITALS: BP 100/60; PULSE 117; RESP 18; TEMP 37; O2SAT 97; BMI 28.3
--- NOTE | 2025-02-27 08:17 | RAD_ITS ---
PROCEDURE: CHEST PA AND LATERAL 02/27/2025 REASON FOR EXAM: CHEST PAIN TECHNIQUE: Procedure Code: RADCXR Modality: DX Procedure: CHEST PA AND LATERAL COMPARISON: September 19, 2019 FINDINGS: Hardware: EKG leads are present Heart: Heart size is mildly enlarged. Mediastinum: There are atherosclerotic calcifications of the thoracic aorta. Lungs: Right lung is clear. Atelectasis or airspace disease left lower lobe with [id number] pleural effusion. Surgical clips overlying the lower thorax. No pneumothorax. Bones: Disruption of the posterior left 7th rib from likely prior surgery or less likely prior trauma. RAD/Chest PA and Lateral IMPRESSION: [id number] pleural effusion with atelectasis or airspace disease left lo wer lobe. See above Reading Location: [id number]
--- NOTE | 2025-02-27 08:17 | EKG12_ITS ---
Test Reason : CP Blood Pressure : */* mmHG Vent. Rate : 117 BPM Atrial Rate : 117 BPM P-R Int : 148 ms QRS Dur : 68 ms QT Int : 300 ms P-R-T Axes : 48 2 24 degrees QTcB Int : 418 ms Sinus tachycardia Otherwise normal ECG Confirmed by CAMILA DE ANDA, EDY ([id number]), editor & co founder TITA DURON ([id number]) on 03/04/2025 6:20:41 AM Referred By: BYRON Confirmed By: EDY JENSEN MD
[2025-02-27 08:20] VITALS: O2SAT 98
[2025-02-27 08:25] LABS: Hematocrit 40.5 % (37-47); Hemoglobin 13.1 g/dL (12.0-15.0); Immature Granulocytes Count 0.090 X10^3/uL (0.0-0.0); Mean Corp Hgb Conc 32.3 g/dL (32-36); Mean Corpuscular Volume 92.3 fL (81-99); Mean Platelet Vol. 11.6 fl (6.2-12.0); NRBC Flagged by Analyzer 0 % (0-5); POSITIVE DIFFERENTIAL YES; Platelet Count 384 K/mm3 (150-450); RBC Distribution Width CV 13.0 % (11.6-14.6); RBC Distribution Width SD 43.6 fl (35.1-43.9); Red Blood Count 4.39 M/mm3 (4.2-5.4); White Blood Count 15.9 K/mm3 (4.4-11.0)
--- NOTE | 2025-02-27 08:25 | ED.VIS.CHEST ---
HPI History of Present Illness Chief Complaint: Chest Pain Detail of Chief Complaint: Hurts to breathe Informant: patient Onset/Context/Timing Onset: Today Activity at onset: gradual Timing: Continuous Quality: Positive for Pain Current Severity: Mild Maximum Severity: Mild Worsened By: Breathing Relieved By: Nothing Associated Symptoms: Negative for Nausea, Vomiting, Diaphoresis, Dyspnea, Cough, Fever, Lightheadedness, Acid Reflux or Palpitations Narrative Narrative: 69-year-old female states it hurts to breathe started this morning. Recent hospitalization [facility] for a diaphragmatic hernia repair. She was hospitalized had surgery on 02/07/2025 and stayed in the hospital several days. No history of DVT or PE. No hemoptysis. No shortness of breath. No exertional chest pain. No cardiac history. No leg pain or swelling. Prior Similar Symptoms: No Recent Illness/Hospitalization: Yes CVD Risk Factors: Positive for Hypertension and Diabetes PE Risk Factors: Positive for Recent Travel/Surgery; Negative for Recent Immobilization, Prior DVT or PE, Cancer or OCP + Smoking + >/=35 TAD Risk Factors: Negative for Marfan's Syndrome [facility] Medical History Wears hearing aid Loss of hearing Wears glasses Wears partial dentures Cancer Anxiety Arthritis High cholesterol Dietary restriction Former smoker Diabetes Gastric reflux Esophageal cancer Gastric ulcer HTN (hypertension) Home Medications ?Medication ?Instructions ?Recorded ?Last Taken ?Type pantoprazole 40 mg tablet,delayed 40 tab PO QHS gerd 05/01/19 02/12/24 History release lisinopril 20 mg tablet 20 mg PO DAILY 12/02/20 02/12/24 History multivitamin (Daily Multi-Vitamin 1 tab PO DAILY 02/08/24 02/12/24 History tablet) BERGAMOT 500 mg PO DAILY BLOOD SUGAR, BLOOD 02/13/24 02/12/24 History PRESSURE acetaminophen 500 mg capsule 500 mg PO Q6H PRN fever or pain 02/13/24 Unknown Rx #60 caps ondansetron 4 mg disintegrating 4 mg PO Q8H PRN nausea and 02/13/24 Unknown Rx tablet vomiting #20 tabs tramadol 50 mg tablet 50 mg PO Q6H PRN PRN severe pain 02/27/25 Unknown History Allergy/AdvReac Type Severity Reaction Status Date / Time codeine Allergy Shortness Verified 02/27/25 08:19 of breath levofloxacin (From Levaquin) Allergy Rash Verified 02/27/25 08:19 Surgical History History of esophageal surgery H/O lumpectomy History of esophagogastroduodenoscopy (EGD) Social History Smoking Status: Former smoker ROS ROS ED ROS Narrative Discomfort with breathing. Constitutional Constitutional ED: Denies chills or fever(s) Eyes Eyes: Reports none ENT ENT ED: Reports ear pain Cardiovascular Cardiovascular: Reports as per HPI and chest pain Respiratory/Chest Respiratory/Chest: Denies cough, dyspnea, dyspnea on exertion or sputum Gastrointestinal Gastrointestinal: Denies abdominal pain Genitourinary Genitourinary ED: Denies dysuria or hematuria Musculoskeletal Musculoskeletal: Denies arthralgias or back pain Integumentary Denies abscess Neurologic Neurologic: Denies headache(s) Psychiatric Psychiatric: Denies anxiety or depression Endocrine Endocrinology: Denies cold intolerance Hematologic/Lymphatic Hematologic/Lymphatic: Denies easy bleeding, easy bruising or lymphadenopathy Allergic/Immunologic Allergic/Immunologic ED: Denies mouth swelling, tongue swelling or urticaria EXAM Physical Exam Narrative Exam Narrative: 69-year-old female sitting upright in bed vital signs are stable though she is tachycardic around 117. Pulse ox 97% on room air no signs of hypoxia. She is currently in no distress. H EENT exam pupils round react light. Moist mucous membranes. Neck nontender. No JVD. No lymphadenopathy. Back nontender. Lungs clear to auscultation bilaterally. Heart tachycardic 115 no murmur. Chest wall and ribs are unremarkable. She has a very well-healing left lateral rib cage incision from where they did hernia repair. It is dry and clean. There is no discharge or drainage no redness. Abdomen is soft, nontender, nondistended, normal bowel sounds without peritoneal signs. Moving all 4 extremities. Normal delivery crew worker strength. Equal symmetrical radial pulses. Normal dorsi plantarflexion. Calves are nontender without edema or cords. Neurologically she is awake alert. Answering questions following commands. Other than her tachycardia she has a very benign exam. Const Vital Signs: 02/27/25 08:15 02/27/25 08:17 02/27/25 08:20 Temperature 98.6 F Temperature Source Oral Pulse Rate 117 H Respiratory Rate 18 Respiratory Effort Respiratory Pattern Blood Pressure 100/60 Blood Pressure Mean 73 Pulse Ox 97 98 Oxygen Delivery Method Room Air Room Air Room Air 02/27/25 08:20 02/27/25 09:14 02/27/25 10:15 Temperature Temperature Source Pulse Rate 115 H 101 H Respiratory Rate 15 Respiratory Effort Normal Non-Labored Respiratory Pattern Normal Blood Pressure 111/77 111/77 Blood Pressure Mean 88 88 Pulse Ox 100 Oxygen Delivery Method Room Air 02/27/25 11:00 Temperature Temperature Source Pulse Rate 100 Respiratory Rate 16 Respiratory Effort Respiratory Pattern Blood Pressure 111/77 Blood Pressure Mean 88 Pulse Ox 988 Oxygen Delivery Method MDM MDM MDM Narrative Medical decision making narrative: 69-year-old female states it hurts to breathe. Had recent surgery in January at . Concern would be for a possible pulmonary emboli versus cardiac etiology versus pneumothorax, pneumonia,? She undergo cardiac workup along with a D-dimer and chest x-ray. Repeat exam patient is doing well at 9 AM. Awaiting further lab tests. I did speak to the patient and went over her chest x-ray with her. She had follow-up with her surgeon at last week. They were happy with her progress. And at that time she had a small pleural effusion also. She had had a chest tube postsurgery. Patient doing well around 9:55 AM. We discussed her CAT scan results. Awaiting the 2-hour troponin. If it is okay she will be discharged home. Repeat exam around 11:24 AM patient is doing well. We have discussed all of her test results. Her pleuritic discomfort is most likely from the left pleural effusion. Osiris does not need drained at this time. She will be discharged to home with outpatient follow-up. She knows to return if worse. We did discuss that the effusion could get worse. History & Record Review Discussion w/independent historian: Patient Additional record(s) reviewed:: Prior outpatient record, Prior ED visit and Prior labs Lab Data Attestation: I reviewed the patient's lab results. Lab results narrative: CBC shows a white count of 15.9. H&H of 13.1 and 40. Platelets 384. Chemistries show a gap of 17. BUN and creatinine of 30 and 1.3 consistent with mild dehydration. She be given IV fluids. Glucose 137. Initial troponin 16. 2-hour troponin is 13. D-dimer is elevated 3.62 CTA of the chest showed no PE. Left pleural effusion seen on chest x-ray. Labs: Laboratory Results - last 24 hr 02/27/25 02/27/25 08:00 09:57 WBC 15.9 H RBC 4.39 Hgb 13.1 Hct 40.5 MCV 92.3 MCH 29.8 MCHC 32.3 RDW Std Deviation 43.6 RDW Coeff of [place] 13.0 Plt Count 384 MPV 11.6 Immature Gran % (Auto) 0.600 Neut % (Auto) 88.3 H Lymph % (Auto) 3.2 L [place] % (Auto) 7.4 Eos % (Auto) 0.2 Baso % (Auto) 0.3 Absolute Neuts (auto) 14.1 H Absolute Lymphs (auto) 0.51 L Nucleated RBC % 0 D-Dimer Quant (PE/DVT) 3.62 H* Sodium 138 Potassium 3.9 Chloride 100 Carbon Dioxide 20.3 L Anion Gap 17 H BUN 30 H Creatinine 1.33 H Estim Creat Clear Calc 36.99 L Est GFR (MDRD) Non-Af 43 L BUN/Creatinine Ratio 22.2 H Glucose 137 H Calcium 10.1 Troponin T High Sens 16 H Troponin T Hi Sens 2 Hr 13 Radiography Chest X-Ray - ED: Read by ED Physician, Heart, Mediastinum, Bony Structures, Chronic Changes and Left Effusion Diagnostic Testing: Clinical Impression(s) from Imaging Studies Chest X-Ray 02/27/25 08:17 IMPRESSION: [id number] pleural effusion with atelectasis or airspace disease left lower lobe. See above Reading Location: [id number] Chest CTA 02/27/25 09:08 IMPRESSION: No evidence of pulmonary embolism. Small left pleural effusion with the compressive atelectasis at the left lung base. 2.4 cm 2.1 cm mass in the left adrenal gland. Questionable gallstones or sludge in the dependent portion of the gallbladder lumen. The patient is status post esophageal resection with gastric pull-through procedure. Reading Location: [id number] Chest x-ray, 2 views, AP and lateral, interpreted by myself. She has a normal cardiac silhouette. Normal right lung field. Small to moderate-sized pleural effusion on the left. Rhythm Strip Rhythm Strip: Sinus Tach Rate: 117 Ectopy: None EKG Initial EKG: Attestation: I personally reviewed and interpreted this EKG as follows: Interpretation: No Acute Injury Pattern and Sinus Tachycardia Comments: Sinus tachycardia rate 117 no acute signs of AK or ischemia. Discharge Plan Triage Chief Complaint: Chest Pain ED Provider: Skip Macdonald Dx/Rx/DC Orders Clinical Impression: Pleural effusion on left, History of hernia repair, History of diabetes mellitus, Hx of esophageal malignancy, History of hypertension Instructions: ED Pleural Effusion Prescriptions: No Action pantoprazole 40 mg tablet,delayed release (DR/EC) 40 tab PO QHS lisinopril 20 mg tablet 20 mg PO DAILY multivitamin [Daily Multi-Vitamin] Tablet 1 tab PO DAILY BERGAMOT 500 mg capsule 500 mg PO DAILY acetaminophen 500 mg capsule 500 mg PO Q6H PRN (Reason: fever or pain) Qty: 60 0RF ondansetron 4 mg tablet,disintegrating 4 mg PO Q8H PRN (Reason: nausea and vomiting) Qty: 20 0RF tramadol 50 mg tablet 50 mg PO Q6H PRN PRN (Reason: severe pain) Primary Care Provider: Sharmaine Alonso NP Referrals: Sharmaine Alonso NP, CHILDREN COUNSELOR-C [Primary Care Provider, Family Practice] - As Needed Activity Restrictions/Additional Instructions: Bradycardia discomfort from breathing is most likely from the fluid collection in your left lung area it is called a pleural effusion. That can develop after the surgery you had. Follow-up with your doctor to get a repeat chest x-ray if you are getting worse. This may resolve or it could get bigger. Your labs and CAT scan look good otherwise. No blood clot. Print Language: Kenyan Disposition Disposition: Home, Self Care
[2025-02-27 08:54] LABS: Anion Gap 17 (5-15); BUN 30 mg/dL (4-19); BUN/Creat Ratio 22.2 RATIO (10-20); Calcium,Total 10.1 mg/dL (7.6-11.0); Carbon Dioxide 20.3 mmol/L (21.0-32.0); Chloride 100 mmol/L (98-108); Estimated Creatinine Clearance 36.99 ml/min (50-250); Glucose 137 mg/dL (70-99); Potassium 3.9 mmol/L (3.3-5.1); Troponin T High Sensitivity 16 ng/L (<=14)
[2025-02-27 09:08] LABS: D-Dimer Quantitative (DVT/PE) 3.62 FEU/ug/m (0.27-0.49)
--- NOTE | 2025-02-27 09:08 | CT_ITS ---
PROCEDURE: CTA CHEST W/WO CONTRAST 02/27/2025 REASON FOR EXAM: PLEURITIC CP AND ELEVATED D-DIMER S/P SURGERY Recent diaphragmatic hernia repair. History of esophageal carcinoma. TECHNIQUE: Procedure Code: [id number] Modality: CT Procedure: CTA CHEST W/WO CONTRAST Multiplanar Sagittal and Coronal images were obtained. 3D post processing was performed CONTRAST: Isovue 370 VOLUME: 100 mL One or more dose reduction techniques were used (e.g., Automated exposure control, adjustment of the mA and/or kV according to patient size, use of iterative reconstruction technique). RADIATION DOSE SUMMARY: CTDlvol: 10.65 mGy DLP: 423.94 mGycm COMPARISON: Prior chest radiograph done earlier in the day. FINDINGS: Hardware: EKG electrodes are seen. Lymph nodes: No suspicious mediastinal adenopathy is seen. Heart: The heart is nonenlarged. Mild degree of coronary artery calcification. Thoracic Aorta: No thoracic aortic aneurysm or dissection. Mild atherosclerotic plaque formation. Pulmonary Vessels: No evidence of pulmonary emboli. Lungs and Airways: Small left pleural effusion with the left basilar compressive atelectasis. Small amount of fluid is seen in the left major fissure. Upper Abdomen: Patient is status post gastric pull-through surgical procedure with the dilatation of the remainder of the esophagus in the stomach. There is a 2.4 cm 2.1 cm mass in the left adrenal gland. A metastatic deposit should be ruled out. The gallbladder is slightly distended. There may be tiny gallstones or sludge within the dependent portion of the gallbladder lumen. Bones: Bone windows are unremarkable. Postsurgical changes in the left lower ribs most likely secondary to recent surgery. CT/CTA Chest W/WO Contrast IMPRESSION: No evidence of pulmonary embolism. Small left pleural effusion with the compressive atelectasis at the left lung b ase. 2.4 cm 2.1 cm mass in the left adrenal gland. Questionable gallstones or sludge in the dependent portion of the gallbladder l umen. The patient is status post esophageal resection with gastric pull-through proce dure. Reading Location: [place] [id number]
[2025-02-27] MEDS: 0.9% Normal Saline (1000mL) 1,000 ML 999 ML IV (09:12)
[2025-02-27 09:14] VITALS: BP 111/77; PULSE 115; RESP 15; O2SAT 100
[2025-02-27 10:15] VITALS: BP 111/77; PULSE 101
[2025-02-27 10:39] LABS: Troponin T High Sens 2 HR 13 ng/L (<=14)
[2025-02-27 11:00] VITALS: BP 111/77; PULSE 100; RESP 16; O2SAT 988
[2025-02-27 11:24] VITALS: BP 111/77; PULSE 100; RESP 16; TEMP 36.6; O2SAT 98
== END 2025-02-27 11:32 | disposition home or self-care (01) ==
PROVIDERS: Emergency Provider Emergency Medicine; PCP Nurse Practitioner Family; Visit Provider Emergency Medicine
DX: J90 Pleural effusion, not elsewhere classified (principal); E11.9 Type 2 diabetes mellitus without complications; I10 Essential (primary) hypertension; Z79.899 Other long term (current) drug therapy; Z85.01 Personal history of malignant neoplasm of esophagus; Z87.891 Personal history of nicotine dependence
CPT/HCPCS: 71046; 71275; 80048; 84484; 85025; 85379; 93005; 96361; 96374; 96375; 99285; Q9967; J2405